=== PATIENT | female | born 1940 | race Caucasian/White ===

== ENCOUNTER → 2017-04-10 | Outpatient (CLI) | payer MEDICARE ==
[2017-04-10 10:24] LABS: Blood Urea Nitrogen 19 mg/dL (7-17); Potassium 4.4 mmol/L (3.5-5.1)
== END | disposition home or self-care (01) ==
LOC: LABWHC1 08:56
PROVIDERS: ATTEND Orthopaedic Surgery
DX: Z01.818 Encounter for other preprocedural examination (principal); Z01.812 Encounter for preprocedural laboratory examination
CPT/HCPCS: 36415; 82565; 84132; 84520; 93005

== ENCOUNTER 2017-04-16 11:23 | Inpatient (IN) | payer MEDICARE ==
[~2017-04-16 11:23] MED LIST: DEXAMETHASONE SOD PHOSPHATE 10 MG/ML 1 ML VIAL IV ONE; LACTATED RINGERS 1,000 ML IV ONE; LIDOCAINE 1% 20 ML VIAL (10MG/ML) FOR IV START INTRADERMA PRN; ONDANSETRON 4 MG/2 ML VIAL IVP ONE; ceFAZolin IN SWFI 2 GM/20 ML SYRINGE IVP ONE
[2017-04-16] MEDS ORDERED: LIDOCAINE 1% 20 ML VIAL (10MG/ML) FOR IV START INTRADERMA ONE (12:20)
[2017-04-16] MEDS ORDERED: MIDAZOLAM 2 MG/2 ML VIAL IVP ONE (12:30)
[2017-04-16 12:40] LABS: Glucose,Whole Blood 86 mg/dL (75-99)
[2017-04-16] MEDS ORDERED: SUCCINYLCHOLINE CHLORIDE 100 MG/5 ML SYR IV ONE (13:16)
[2017-04-16] MEDS ORDERED: HYDROmorphone (PF) 1 MG/ML ONE (13:16)
[2017-04-16] MEDS ORDERED: ceFAZolin 3,000 MG in SODIUM CHLORIDE 0.9% IRRIGATIO 3,000 ML IRRIGATION ONE (13:16)
[2017-04-16] MEDS ORDERED: fentaNYL (PF) 50 MCG/ML 2 ML AMP ONE (13:16)
[2017-04-16] MEDS ORDERED: PROPOFOL 10 MG/ML 20 ML VIAL IV ONE (13:16)
[2017-04-16] MEDS ORDERED: LIDOCAINE 2%-EPI 1:100,000 20 ML VIAL ONE (13:16)
[2017-04-16] MEDS ORDERED: LIDOCAINE 1% INJ 10MG/ML (20 ML MDV) ONE (13:16)
[2017-04-16] MEDS ORDERED: MIDAZOLAM 2 MG/2 ML VIAL ONE (13:16)
[2017-04-16] MEDS ORDERED: ROPIVACAINE 5 MG/ML 30 ML VIAL ONE (13:16)
[2017-04-16] MEDS ORDERED: LACTATED RINGERS 1,000 ML IV ONE (13:58)
--- NOTE | 2017-04-16 16:07 | XR ---
Fluoroscopy INDICATION: Pain, arthrodesis FINDINGS: Fluoroscopy time: 2 minutes 11 seconds. Images obtained: 6. IMPRESSIONS: 1. Documentation of fluoroscopy.
[2017-04-16] MEDS ORDERED: SENNOSIDES-DOCUSATE SODIUM 1 EACH TAB PO PRN (16:29)
[2017-04-16] MEDS ORDERED: TEMAZEPAM 15 MG CAP PO PRN (16:29)
[2017-04-16] MEDS ORDERED: ONDANSETRON 4 MG/2 ML VIAL IVP PRN (16:29)
[2017-04-16] MEDS ORDERED: diphenhydrAMINE 25 MG CAP PO PRN (16:29)
[2017-04-16] MEDS ORDERED: HYDROmorphone 0.5 MG/0.5 ML SYRINGE IVP PRN ×2 (16:29)
[2017-04-16] MEDS ORDERED: PROCHLORPERAZINE SUPPOSITORY 25 MG SUPP RECTAL PRN (16:29)
[2017-04-16] MEDS ORDERED: METOCLOPRAMIDE 5 MG/ML 2 ML VIAL IVP PRN (16:29)
[2017-04-16 16:47] LABS: Glucose,Whole Blood 133 mg/dL (75-99)
--- NOTE | 2017-04-16 16:59 | P.OP ---
Date of Procedure: 04/16/17 Preoperative Diagnosis: 1. Failed open reduction and internal fixation left ankle fracture with fixed valgus deformity and ankle arthritis 2. Type 2 diabetes with peripheral neuropathy 3. Obesity Postoperative Diagnosis: Same Procedure(s) Performed: 1. Left tibiotalocalcaneal arthrodesis with intramedullary device 2. Left percutaneous tendo Achilles lengthening 3. Removal of deep implants, left ankle 4. Application of short leg splint by physician Implants: [employer] Nail [id number] Anesthesia: GETA Surgeon: Ryan Nixon Director Of Emergency Nursing #1: Garry Stahl Estimated Blood Loss (ml): 100 IV fluids (ml): 1,500 Pathology: none sent Condition: stable Disposition: PACU Indications for Procedure: The patient is a very pleasant 77-year-old female with multiple medical problems including diabetes with peripheral neuropathy who sustained a closed left ankle fracture in 2013. She underwent operative fixation of her ankle fracture through our office with one of my partners. Following surgery she had failure of her hardware, fracture above her plate and screws on the distal fibula, valgus collapse and development of arthritis and significant deformity throughout her ankle and foot. She was initially managed nonoperatively by myself with an Ruby brace. She continued to have pain and difficulty with ambulation and a significant deformity in her ankle and foot. She got to the point where nonsurgical treatment no longer provided relief and she requested surgery. My recommendation was to perform a TTC fusion with an intramedullary device. We discussed the potential risks and complication of surgery including but not limited to risk of anesthesia, risk of superficial infection, risk of deep infection, risk of leg wound healing, risk of superficial wound necrosis, risk of deep wound necrosis, risk of nonunion of the fusion site, risk of malunion of the fusion site, risk of failure of hardware, risk of overcorrection of the deformity, risk of under correction of the deformity, risk of chronic pain, risk of chronic swelling, risk of DVT, risk of PE, risk of generalized to satisfaction with surgery, risk of inability to regain preinjury level of function, risk of inability to ambulate following surgery, risk of need for further surgery, and possibly loss of life or limb. The patient voiced her understanding of this and provided both her verbal and written consent to go forward with surgery. Description of Procedure: The patient was identified in preoperative holding and the correct left leg was marked with my initials. I reviewed the consent form with the patient and her family. All their questions were answered. The patient was seen and evaluated by anesthesia. A popliteal and saphenous nerve block was placed. The patient was then brought back to the operating room. She was positioned on the OR table where a general anesthetic and preoperative antibiotics were administered. A tourniquet was applied to the proximal aspect of the left thigh. The right leg was secured to the OR table with foam and tape. A bone foam bump was placed under her left buttock and a ramp was placed under her left leg. Her upper extremities were padded and secured. The left leg was then prepped and draped in the standard sterile fashion. Prior to starting surgery timeout was performed identifying the correct patient, operative extremity, and procedure. The patient's leg was then elevated, exsanguinated with an Esmarch bandage, and the tourniquet was inflated to 275 mmHg. I began by performing a percutaneous triple hemisection tendo Achilles lengthening. 3 stab incisions were made starting 2 cm proximal to the posterior tuberosity of the calcaneus with 2 cm between each stab wound. The most distal and proximal stab incisions released the medial half of the Achilles tendon and the middle incision released the lateral half of the Achilles tendon. A gentle dorsiflexion force was applied to the ankle and there was an audible and palpable pop as the Achilles lengthened. The Achilles lengthening was still in continuity. Roll incision and scar was then marked out over the distal fibula. Skin incision was made with a 15 blade scalpel. Dissection was carried down carefully through subcutaneous tissue to the periosteum over the fibula. The fibula was then circumferentially exposed. A small microsagittal saw was used to make an osteotomy just proximal to the plate and screws. The fibula fragment was then exposed, released and passed off to the back table to be used as bone graft. The plate and screws were all removed with the osteotomy fragment. The ankle and subtalar joint were then exposed. All the remaining articular cartilage was removed from the tibial plafond and, talar dome, and subtalar joint. A curet was used to roughen the exposed bony surfaces. The wound was then copiously irrigated. Attention was then turned to the medial aspect of the ankle. The previously made scar was marked out and extended proximally. Incision was made with a scalpel and dissection was carried down carefully through subcutaneous tissue with tenotomy scissors. The medial malleolus was circumferentially exposed. A Rafi was used to expose the medial malleolus screw which was removed. Baby Luciana retractors were placed posteriorly to the medial malleolus and a microsagittal saw was used to make an osteotomy through the medial malleolus. The ankle joint was then exposed medially. The remaining articular cartilage from the ankle joint was removed. The ankle was copiously irrigated. At this point a 2.0 mm drill bit was used to perforate the exposed subchondral bone in the ankle and subtalar joint both medially and laterally. A mixture of crushed bone graft taken during surgery and augment was used to fill bony voids and the prepared joint surface. I then positioned the joint for fusion. I was able to completely medialize the talus under the tibia. I attempted to place the ankle in neutral dorsiflexion. I then had an educational assistant placed K wires peripherally into the ankle joint. Clinically the patient's ankle appeared to be in acceptable position. The position of the joint was then checked with fluoroscopy. On the AP view the talus appeared to be medialized and directly under the tibia. On the lateral view the talus was in slight plantarflexion. The K wires were withdrawn and increased dorsiflexion was applied to the ankle and the K wires were once again driven into the talus. There was improvement in the amount of dorsiflexion. At this point a stab incision was made on the plantar aspect of the foot just proximal to the fat pad of the calcaneus. A guidewire from the nail set was then driven up through the plantar aspect of the calcaneus, into the talus and up into the tibia. The position of the wire was checked with fluoroscopy and 2 views. An opening reamer was then used to create a path through the plantar calcaneus, talus and distal tibia. A ball-tipped guidewire was then placed. I sequentially reamed and 0.5 mm increments with a 9 mm reamer. The 10 mm reamer generated chatter. I then overreamed up to an 11 mm reamer. I elected to use a 10 mm diameter nail. A 250 mm length 10 mm diameter nail was dispensed and hooked up to the targeting arm. I verified that all the guides lined up with the nail the targeting arm. The nail was then gently tapped into place and verified its final seating with fluoroscopy. I then placed 2 interlocking screws through the targeting arm into the tibia. I then placed the calcaneal locking screw through the lateral aspect of the talus. After this screw was placed the internal compression device was used to generate compression across the fusion sites. I then proceeded to place the calcaneus and subtalar screw. At this point final fluoroscopy shots were taken including an AP and lateral view of the tibia, AP and lateral views of the ankle. The fascia over the fusion site laterally was closed with a running 0 Vicryl stitch. The deep subcu was then copiously irrigated with sterile saline. The deep subcu was reapproximated using 2-0 Vicryl. The skin was closed using 3-0 nylon Algor modification of the Donati stitch. The medial incision was closed in layers with 0 Vicryl for the deep fascia, 2-0 Vicryl for the subcu, and 3-0 nylon horizontal mattress stitches for the skin. The stab incisions and plantar foot wound were closed with 3-0 nylon horizontal mattress stitches. I verified that all instrument, sponge, and sharp counts were correct. Sterile dressing consisting of Brown [place] stretchy Steri-Strips, Betadine soaked Adaptic, 4 x 4 and web roll was applied. A well-padded bulky Hoang splint was placed. The drapes were taken down, the patient was awoken from her anesthetic, and transferred to PACU in stable condition. Garry Stahl PA-C was required is a skilled educational assistant for patient positioning, surgical exposure, preparation of the fusion site, placement of hardware, closure of surgical wounds, and application of splint. Plan: The patient is going to be admitted to the hospital as an inpatient. She is to be strictly nonweightbearing on her left leg. She will receive DVT prophylaxis with Lovenox while in-house and will be discharged home on aspirin. Internal medicine will be consulted for perioperative medical management.
[2017-04-16] MEDS: HYDROmorphone 0.5 MG/0.5 ML SYRINGE IVP PRN ×2 (17:23→17:49)
[2017-04-16 19:18] LABS: Anisocytosis Slight; Basophils % (A) 0 %; Eosinophils % (A) 0 %; HCT 38.1 % (34.0-46.0); HGB 11.9 gm/dL (11.4-16.0); Hypochromasia Slight; Lymphocytes # (A) 0.4 k/uL (1.0-4.8); Lymphocytes % (A) 5 %; MCH 31.8 pg (25.0-35.0); MCHC 31.3 g/dL (31.0-37.0); MCV 101.5 fL (80.0-100.0); Macrocytosis Slight; Mean Platelet Volume 9.8; Monocytes # (A) 0.2 k/uL (0-1.0); Monocytes % (A) 2 %; Neutrophils # (A) 8.2 k/uL (1.3-7.7); Neutrophils % (A) 92 %; Platelet Count 215 k/uL (150-450); RBC 3.76 m/uL (3.80-5.40); RDW 16.2 % (11.5-15.5); WBC 8.9 k/uL (3.8-10.6)
[2017-04-16] MEDS: PRIMIDONE 50 MG TAB PO SCH (21:20)
[2017-04-16] MEDS: ceFAZolin IN SWFI 2 GM/20 ML SYRINGE IVP SCH (21:21)
[2017-04-16 21:54] VITALS: BMI 32.8
[2017-04-16] MEDS: HYDROcodone/APAP 10-325MG 1 EACH TAB PO PRN (22:01)
[2017-04-16] MEDS ORDERED: LISINOPRIL 20 MG TAB PO STA (23:17)
[2017-04-16 23:38] LABS: Glucose,Whole Blood 189 mg/dL (75-99)
[2017-04-17] MEDS: METOPROLOL TARTRATE 25 MG TAB PO SCH ×3 (00:13→21:02)
[2017-04-17] MEDS: ceFAZolin IN SWFI 2 GM/20 ML SYRINGE IVP SCH (05:27)
--- NOTE | 2017-04-17 05:49 | CONS ---
CONSULTATION DATE OF SERVICE: 04/16/2017 REASON FOR CONSULTATION: Medical management requested by Dr. Nixon. CONSULTATION: This is a pleasant 77-year-old patient whose chronic stable medical conditions include diabetes, hyperlipidemia, rheumatoid arthritis, chronic tremors in the left arm, urinary incontinence, hypertension. The patient suffered a closed ankle fracture in 2013. She had surgical intervention. Subsequently the hardware failed with fracture above the plate. The patient had a valgus collapse and developed subsequent arthritis and significant deformity. This was initially managed nonoperatively put finally decision was made to proceed with surgery that was done today. Left foot in a support. Postoperative, no nausea or vomiting. No chest pain. Patient is currently on clear liquids. Note, denies any cardiac history. REVIEW OF SYSTEMS: CONSTITUTIONAL: None. HEENT: None. RESPIRATORY: None. CARDIOVASCULAR: None. GASTROINTESTINAL: None. GENITOURINARY: Urinary incontinence. DERMATOLOGICAL: None. HEMATOLOGIC: None. LYMPHATIC: None. PSYCHIATRY: None. NEUROLOGICAL: Tremors of the left arm. MUSCULOSKELETAL: Arthritic pain in other joints. PAST MEDICAL HISTORY: Diabetes, hyperlipidemia, rheumatoid arthritis, tremors of left arm, urinary incontinence, hypertension. PAST SURGICAL HISTORY: Cholecystectomy, tonsillectomy, ORIF of the left ankle, bilateral cataract. SOCIAL HISTORY: No smoking. Alcohol occasionally wine. Lives by herself. FAMILY HISTORY: Cancer type unknown. HOME MEDICATIONS: 1. Multivitamin 1 tab p.o. daily. 2. NovoLog 70/30, 10 units subcu b.i.d. 3. Folic acid 0.4 mg p.o. daily. 4. Vitamin D3, 1000 units p.o. daily. 5. Aspirin 325 p.o. daily. 6. Mysoline 50 mg before supper, 100 mg in the morning. 7. Ditropan XL 10 mg p.o. daily. 8. Methotrexate 20 mg p.o. Friday. 9. Enalapril 10 mg p.o. b.i.d. 10.Lipitor 20 mg p.o. daily. ALLERGIES: None. PHYSICAL EXAMINATION: On examination, temperature 97.7, pulse 77, respirations 17, blood pressure 185/75, pulse ox 97% on 2 L. GENERAL APPEARANCE: Well built, BMI 32.8, lying in bed, comfortable. EYES: Pupils equal. Conjunctivae normal. HENT: Oral cavity normal. NECK: JVD not raised. Mass not palpable. RESPIRATORY: Effort normal. Lungs are clear. CARDIOVASCULAR: First and second sounds normal. No edema. ABDOMEN: Soft, nontender. Liver and spleen not palpable. LYMPHATIC: No lymph node palpable in the neck or axillae. PSYCHIATRY: Alert and oriented x3. Mood and affect normal. NEUROLOGICAL: Pupils equal. Cranial nerves grossly intact. Power and sensation grossly intact. EXTREMITIES: Left in a supportive boot. INVESTIGATIONS: White count 8.9, hemoglobin 11.9, platelets 215. ASSESSMENT: 1. Operative repair of the left ankle, having failed a prior surgery in 2013. 2. Diabetes mellitus type 2, chronically on insulin. 3. Hyperlipidemia. 4. Chronic rheumatoid arthritis. 5. Chronic tremors of the left arm. 6. Chronic urinary stress incontinence. 7. Essential hypertension. 8. Obesity; body mass index 32.8. PLAN: Home medications are resumed. The patient is on Dilaudid for pain control, Lovenox for DVT prophylaxis. Accu-Cheks will be followed. The patient's blood pressure is currently running high. I will give 1 dose of Catapres. Make sure patient's pain is controlled. Care was discussed with the patient. The patient does follow with Dr. Moreno as an outpatient. Thank you Dr. Nixon. MMPHUL / SHYN: [id number] /
[2017-04-17 06:49] LABS: Glucose,Whole Blood 171 mg/dL (75-99)
[2017-04-17] MEDS: INSULN ASP PRT/INSULIN ASPART 100 UNIT/ML 10 ML VIAL SQ SCH ×2 (07:33→17:35)
[2017-04-17] MEDS: LISINOPRIL 20 MG TAB PO SCH (08:21)
[2017-04-17] MEDS: PRIMIDONE 50 MG TAB PO SCH ×2 (08:22→18:25)
[2017-04-17] MEDS: CHOLECALCIFEROL 1,000 UNIT TAB PO SCH (08:22)
[2017-04-17] MEDS: OXYBUTYNIN 10 MG TAB.ER.24 PO SCH (08:22)
[2017-04-17] MEDS: ATORVASTATIN 20 MG TAB PO SCH (08:23)
[2017-04-17] MEDS: FOLIC ACID 1 MG TAB PO SCH (08:23)
[2017-04-17] MEDS: POLYETHYLENE GLYCOL 3350 17 GM POWD.PACK PO SCH (08:24)
--- NOTE | 2017-04-17 09:01 | P.PN ---
Subjective Progress Note Date: 04/17/17 Principal diagnosis: S/P Tibiotalacalcaneal arthrodesis Patient is postop day 1 from left tibial talocalcaneal arthrodesis there was performed due to failed ORIF of left ankle fracture, ankle instability, diabetes mellitus, peripheral neuropathy, obesity. She has minimal pain this morning. She denies calf pain. She has no new complaints. Review of systems is negative for fever, chills, chest pain, shortness breath, nausea, vomiting, dizziness, headaches, slurred speech or other. Objective - Vital Signs Vital signs: Vital Signs Temp 99.2 F 04/17/17 07:22 Pulse 71 04/17/17 07:22 Resp 16 04/17/17 07:22 BP 148/61 04/17/17 07:22 Pulse Ox 94 L 04/17/17 07:22 Intake & Output 04/16/17 04/17/17 04/17/17 18:59 06:59 18:59 Intake Total 1801 220 240 Output Total 100 900 Balance 1701 -680 240 Weight 95 kg Intake: IV 1801 Intake, IV Titration 220 Amount Lactated Ringers 1,000 ml 220 @ 20 mls/hr IV .Q24H ONE Rx#:[id number] Oral 240 Output: Urine 900 Estimated Blood Loss 100 Other: Voiding Method Bedside Commode - Exam Inspection left lower extremity shows appropriate fitting splint intact. There is evidence of some mild bleeding at the lateral aspect of the splint and Sunil which is benign. She has adequate perfusion distally with less than 2 second capillary refill in all digits. There is no constriction at the proximal aspect of the splint and bandage. - Constitutional General appearance: Present: no acute distress - Psychiatric Psychiatric: Present: A&O x's 3, appropriate affect, intact judgment & insight - Labs CBC & Chem 7: 04/16/17 19:00 Labs: Abnormal Lab Results - Last 24 Hours (Table) 04/16/17 04/16/17 04/16/17 Range/Units 16:44 19:00 23:35 RBC 3.76 L (3.80-5.40) m/uL MCV 101.5 H (80.0-100.0) fL RDW 16.2 H (11.5-15.5) % Neutrophils # 8.2 H (1.3-7.7) k/uL Lymphocytes # 0.4 L (1.0-4.8) k/uL POC Glucose (mg/dL) 133 H 189 H (75-99) mg/dL 04/17/17 Range/Units 06:46 RBC (3.80-5.40) m/uL MCV (80.0-100.0) fL RDW (11.5-15.5) % Neutrophils # (1.3-7.7) k/uL Lymphocytes # (1.0-4.8) k/uL POC Glucose (mg/dL) 171 H (75-99) mg/dL Assessment and Plan (1) Ankle fracture, left Current Visit: Yes Status: Acute Code(s): S82.892A - OTH FRACTURE OF LEFT LOWER LEG, INIT FOR CLOS FX SNOMED Code(s): 56604790 (2) Bimalleolar ankle fracture Narrative/Plan: She will continue with routine postop orthopedic protocol including pain management, wound care, physical therapy, DVT prophylaxis and medical management. Advised to keep left lower extremity elevated as well as reinforce the splint and Sunil where there is some mild bleeding. We will continue to monitor closely and make further recommendations as appropriate. She may be a candidate for transfer to an extended care facility for rehabilitation. Current Visit: No Status: Acute Priority: Medium Code(s): S82.843A - DISPLACED BIMALLEOLAR FRACTURE OF UNSP LOWER LEG, INIT SNOMED Code(s): 910638169 Time with Patient: Less than 30
[2017-04-17] MEDS: ENOXAPARIN 40 MG/0.4 ML SYRINGE SQ SCH (09:45)
--- NOTE | 2017-04-17 10:16 | XR ---
EXAMINATION TYPE: XR chest 1V DATE OF EXAM: 04/17/2017 HISTORY: Shortness of breath. COMPARISON: 09/27/2013 TECHNIQUE: Single view of the chest is submitted. FINDINGS: Demonstrated are scattered senescent parenchymal change. There is no evidence for focal infiltrate. The heart is stable. Hilar and mediastinal structures are within normal limits. Degenerative changes are seen of the dorsal spine. IMPRESSION: 1. Chronic changes without evidence for acute pulmonary disease.
[2017-04-17 11:21] LABS: Glucose,Whole Blood 183 mg/dL (75-99)
[2017-04-17] MEDS: MULTIVITAMINS, THERA 1 EACH TAB PO SCH (12:37)
[2017-04-17] MEDS: INSULIN ASPART 100 UNIT/ML 1 ML 10 ML VIAL SQ SCH ×3 (12:37→20:39)
[2017-04-17 15:46] LABS: Glucose,Whole Blood 126 mg/dL (75-99)
[2017-04-17] MEDS: HYDROcodone/APAP 10-325MG 1 EACH TAB PO PRN ×3 (16:31→22:51)
[2017-04-17 18:52] LABS: Hemoglobin A1C 5.5 % (4.0-6.0)
[2017-04-17 19:38] LABS: Glucose,Whole Blood 126 mg/dL (75-99)
--- NOTE | 2017-04-17 19:59 | P.PN ---
Progress Note - Text Progress Note Date: 04/17/17 DATE OF SERVICE: 04/17/2017 PRESENTING COMPLAINT: Left ankle hardware failure HISTORY OF PRESENT ILLNESS: 77-year-old female who suffered a closed ankle fracture in 2013, had surgical intervention, had a subsequent hardware failure with fracture above the plate, had a valgus collapse and developed subsequent arthritis and significant deformity. Attempts made to manage nonoperatively and decision made to proceed with surgery. INTERVAL HISTORY: 04/17/2017 Sitting up in a recliner appears comfortable. No acute overnight events, afebrile, vital signs stable. Agreeable to work with physical therapy, pain is well-controlled, tolerating her diet eating about 50% of her meals, last BM prior to admission. REVIEW OF SYSTEMS: Done for constitutional ,cardiovascular, GI, pulmonary with relevant findings as above. CURRENT MEDICATIONS Vanzant, Lipitor, cholecalciferol, Benadryl, Lovenox, folic acid, Dilaudid, Vistaril, NovoLog, lisinopril, Reglan, Lopressor, multivitamin, Zofran, Ditropan XL, MiraLAX, Mysoline, Compazine, Restoril, Senokot-S. PHYSICAL EXAM VITAL SIGNS: Temperature 99.2, pulse 71, blood pressure 148/61, oxygen saturation 94% on room air GENERAL APPEARANCE: Sitting up in a recliner not in distress. HENT: Normocephalic, JVD not raised. Mass not palpable. Oral cavity normal, external appearance of ears and nose normal. EYES:Pupils equal. Conjunctiva normal. RESPIRATORY: Respiratory effort normal. Lungs clear to auscultation. CARDIOVASCULAR: First and second sounds normal. No edema. ABDOMEN: Soft. Liver and spleen not palpable. No tenderness. No mass palpable. PSYCHIATRY: Alert and oriented x3. Mood and affect normal. MUSCULOSKELETAL: Left lower extremity in a supportive boot INVESTIGATIONS: Accu-Cheks noted ASSESSMENT: -Operative repair for left ankle, having failed a prior surgery in 2013. -Diabetes mellitus type 2 chronically on insulin. -Hyperlipidemia. -Chronic rheumatoid arthritis, -Chronic tremors of the left arm. -Chronic urinary stress incontinence. -Essential hypertension. -Obesity, body mass index 32.8. PLAN: Blood pressure is better controlled today with Catapres will continue that. We' ll continue current medication and treatment plan. Discharge planning likely for rehab Center. We'll await physical therapy evaluation. Plan of care discussed with the patient at bedside will follow closely. REFRIGERATION UNIT REPAIRER statement: Patient was seen and examined by nurse practitioner Amara Melchor and all elements of the case discussed with attending Dr. Jarrett negron
[2017-04-17] MEDS: hydrOXYzine PAMOATE 25 MG CAP PO PRN (20:55)
[2017-04-17] MEDS: HYDROmorphone 0.5 MG/0.5 ML SYRINGE IVP PRN (20:56)
--- NOTE | 2017-04-17 23:37 | PN ---
PROGRESS NOTE DATE OF SERVICE: 04/17/2017 ATTENDING NOTE: This patient was seen and examined by me. I discussed the case with the nurse practitioner Ms. Melchor. Patient is status post left ankle fracture surgery. Patient's blood pressure was running high last night, but talked to the nurse this morning; repeat blood pressure actually was controlled. Did receive her blood pressure medications. Comfortable, sitting up, tolerating a diet. On examination, temperature 97.6, pulse 59, blood pressure 127/65. LUNGS: Clear. CARDIOVASCULAR: First and second sounds normal. Status post left ankle repair. Continue current medication and treatment plan. Will follow. MMODL / IJN: [id number] /
[2017-04-18] MEDS: HYDROcodone/APAP 10-325MG 1 EACH TAB PO PRN ×4 (02:14→22:17)
[2017-04-18 07:02] LABS: Glucose,Whole Blood 88 mg/dL (75-99)
[2017-04-18] MEDS: hydrOXYzine PAMOATE 25 MG CAP PO PRN ×2 (07:05→14:09)
[2017-04-18] MEDS: POLYETHYLENE GLYCOL 3350 17 GM POWD.PACK PO SCH (08:14)
[2017-04-18] MEDS: PRIMIDONE 50 MG TAB PO SCH ×2 (08:14→17:26)
[2017-04-18] MEDS: METOPROLOL TARTRATE 25 MG TAB PO SCH ×2 (08:14→22:26)
[2017-04-18] MEDS: ATORVASTATIN 20 MG TAB PO SCH (08:14)
[2017-04-18] MEDS: OXYBUTYNIN 10 MG TAB.ER.24 PO SCH (08:14)
[2017-04-18] MEDS: CHOLECALCIFEROL 1,000 UNIT TAB PO SCH (08:14)
[2017-04-18] MEDS: INSULN ASP PRT/INSULIN ASPART 100 UNIT/ML 10 ML VIAL SQ SCH ×2 (08:15→17:24)
[2017-04-18] MEDS: INSULIN ASPART 100 UNIT/ML 1 ML 10 ML VIAL SQ SCH ×4 (08:15→22:26)
[2017-04-18] MEDS: LISINOPRIL 20 MG TAB PO SCH (08:16)
[2017-04-18] MEDS: ENOXAPARIN 40 MG/0.4 ML SYRINGE SQ SCH (08:17)
[2017-04-18] MEDS: FOLIC ACID 1 MG TAB PO SCH (08:17)
--- NOTE | 2017-04-18 08:48 | P.PN ---
Subjective Progress Note Date: 04/18/17 Principal diagnosis: Status post open reduction internal fixation left ankle This is a 77-year-old female who is status post open reduction internal fixation of the left ankle. She is doing well from an orthopedic standpoint. She is awaiting rehab placement. Objective - Vital Signs Vital signs: Vital Signs Temp 98.7 F 04/18/17 01:43 Pulse 66 04/18/17 01:43 Resp 16 04/18/17 01:43 BP 131/67 04/18/17 01:43 Pulse Ox 96 04/18/17 01:43 Intake & Output 04/17/17 04/18/17 04/18/17 18:59 06:59 18:59 Intake Total 360 540 Output Total 350 Balance 360 190 Intake: IV 120 Lactated Ringers 1,000 ml 120 @ 20 mls/hr IV .Q24H ONE Rx#:[id number] Oral 240 540 Output: Urine 350 Other: Voiding Method Bedside Commode # Voids 1 - Exam This is a pleasant 77-year-old female in no acute distress. She is alert and oriented 3. Exam of the left lower extremity reveals that her splint is intact. She has full toe motion without difficulty or pain. Capillary refill is less than 2 seconds. She has normal sensation to the toes. Neurovascular status to the lower extremity is intact. - Labs CBC & Chem 7: 04/16/17 19:00 Labs: Abnormal Lab Results - Last 24 Hours (Table) 04/17/17 04/17/17 04/17/17 Range/Units 11:19 15:45 19:18 POC Glucose (mg/dL) 183 H 126 H 126 H (75-99) mg/dL Assessment and Plan (1) Ankle fracture, left Current Visit: Yes Status: Acute Code(s): S82.892A - OTH FRACTURE OF LEFT LOWER LEG, INIT FOR CLOS FX SNOMED Code(s): 70983648 (2) Bimalleolar ankle fracture Current Visit: No Status: Acute Priority: Medium Code(s): S82.843A - DISPLACED BIMALLEOLAR FRACTURE OF UNSP LOWER LEG, INIT SNOMED Code(s): 143941888 Plan: The clinical findings are discussed the patient. We are planning discharge to inpatient rehab tomorrow if cleared medically.
[2017-04-18 11:48] LABS: Glucose,Whole Blood 116 mg/dL (75-99)
[2017-04-18] MEDS: MULTIVITAMINS, THERA 1 EACH TAB PO SCH (12:40)
[2017-04-18 17:04] LABS: Glucose,Whole Blood 103 mg/dL (75-99)
--- NOTE | 2017-04-18 18:02 | PN ---
PROGRESS NOTE DATE OF SERVICE: 04/18/2017 ATTENDING NOTE: This patient was seen and examined by me. I discussed the case with the nurse practitioner Ms. Melchor. Patient is sitting up in a chair, comfortable. Pain is controlled. Tolerating a diet. No nausea or vomiting. On examination, temperature 98, pulse 68, respiration 16, blood pressure 160/72, pulse ox 94% on room air. Lungs are clear. CARDIOVASCULAR: First and second sounds normal. Patient is status post ankle surgery. Blood pressure is actually better controlled. The patient is going to the [facility] today. From my standpoint, I am going to adjust the blood pressure to reflect Zestoretic 20/12.5 one tablet p.o. b.i.d. Hopefully that should control the blood pressure better. Otherwise, patient is medically stable. MMODL / IJN: [id number] /
[2017-04-18 19:57] LABS: Glucose,Whole Blood 169 mg/dL (75-99)
[2017-04-19] MEDS: HYDROmorphone 0.5 MG/0.5 ML SYRINGE IVP PRN ×2 (00:09→12:27)
[2017-04-19] MEDS: HYDROcodone/APAP 10-325MG 1 EACH TAB PO PRN ×3 (01:25→18:57)
[2017-04-19] MEDS: hydrOXYzine PAMOATE 25 MG CAP PO PRN ×3 (01:25→18:57)
[2017-04-19 06:59] LABS: Glucose,Whole Blood 85 mg/dL (75-99)
[2017-04-19] MEDS: INSULIN ASPART 100 UNIT/ML 1 ML 10 ML VIAL SQ SCH ×4 (07:33→21:59)
[2017-04-19] MEDS: INSULN ASP PRT/INSULIN ASPART 100 UNIT/ML 10 ML VIAL SQ SCH ×2 (07:33→17:48)
[2017-04-19] MEDS: PRIMIDONE 50 MG TAB PO SCH ×2 (08:16→18:54)
[2017-04-19] MEDS: CHOLECALCIFEROL 1,000 UNIT TAB PO SCH (08:16)
[2017-04-19] MEDS: ENOXAPARIN 40 MG/0.4 ML SYRINGE SQ SCH (08:16)
[2017-04-19] MEDS: OXYBUTYNIN 10 MG TAB.ER.24 PO SCH (08:16)
[2017-04-19] MEDS: LISINOPRIL 20 MG TAB PO SCH (08:16)
[2017-04-19] MEDS: FOLIC ACID 1 MG TAB PO SCH (08:16)
[2017-04-19] MEDS: ATORVASTATIN 20 MG TAB PO SCH (08:17)
[2017-04-19] MEDS: METOPROLOL TARTRATE 25 MG TAB PO SCH ×2 (08:17→21:59)
[2017-04-19] MEDS: POLYETHYLENE GLYCOL 3350 17 GM POWD.PACK PO SCH (08:17)
[2017-04-19] MEDS: MULTIVITAMINS, THERA 1 EACH TAB PO SCH (08:17)
--- NOTE | 2017-04-19 11:26 | P.DS ---
Providers Date of admission: 04/16/17 16:25 Expected date of discharge: 04/19/17 Attending physician: Ryan Nixon Consults: 04/16/17 16:29 Consult Physician Routine Consulting Provider: Mando Farias Consult Reason/Comments: post op medical management Do you want consulting provider notified?: Yes Primary care physician: Seven Moreno - Discharge Diagnosis(es) (1) Ankle fracture, left Current Visit: Yes Status: Acute (2) Bimalleolar ankle fracture Current Visit: No Status: Acute Priority: Medium Hospital Course: This is a 77-year-old female who is admitted to [facility] on 04/16/2017 for fusion of her left ankle. She was diagnosed with valgus collapse and posterior medication arthritis following open reduction internal fixation of the ankle with vitamin D deficiency. It is recommended that she undergo left ankle tibiotalar calcaneal arthrodesis with Achilles lengthening. The procedures performed without complication or sequelae. The patient is doing fairly well postoperatively. It is recommended that she transfer to inpatient rehab postoperatively. She remains in the short leg nonweightbearing splint to the left lower extremity. Patient is discharged to inpatient rehab on 04/19/2017 in good condition. She is to remain nonweightbearing to left lower extremity with her walker. Plan - Discharge Summary Discharge Rx Participant: No New Discharge Prescriptions: New Aspirin 81 mg PO DAILY #1 chewable HYDROcodone/APAP 10-325MG [[place] 10-325] 1 each PO Q4H PRN #20 tab PRN Reason: Pain Scale 1 To 5 Insulin Aspart [NovoLOG (formulary)] 0 unit SQ ACHS vial Lisinopril-Hctz 20-12.5 mg [Zestoretic 20-12.5] 1 tab PO BID #1 tab Sennosides-Docusate Sodium [Senokot-S] 2 each PO HS PRN tab PRN Reason: Constipation Aspirin 325 mg PO BID #60 tab Continue Methotrexate Sodium [Methotrexate] 20 mg PO Q7D Primidone [Mysoline] 100 mg PO QAM Multivitamins, Thera [Multivitamin (formulary)] 1 tab PO DAILY Folic Acid 0.4 mg PO DAILY Cholecalciferol [Vitamin D3] 1,000 unit PO DAILY Primidone [Mysoline] 50 mg PO PC-SUPPER Oxybutynin Chloride [Ditropan XL] 10 mg PO DAILY Atorvastatin [Lipitor] 20 mg PO DAILY Insuln Asp Prt/Insulin Aspart [NovoLOG MIX 70-30 VIAL] 10 unit SQ BID-W/MEALS Discontinued Enalapril Maleate 10 mg PO BID Aspirin 325 mg PO QAM Discharge Medication List Methotrexate Sodium [Methotrexate] 20 mg PO Q7D 09/09/14 [History] Primidone [Mysoline] 100 mg PO QAM 09/09/14 [History] Atorvastatin [Lipitor] 20 mg PO DAILY 04/08/17 [History] Cholecalciferol [Vitamin D3] 1,000 unit PO DAILY 04/08/17 [History] Folic Acid 0.4 mg PO DAILY 04/08/17 [History] Insuln Asp Prt/Insulin Aspart [NovoLOG MIX 70-30 VIAL] 10 unit SQ BID-W/MEALS [History] Multivitamins, Thera [Multivitamin (formulary)] 1 tab PO DAILY 04/08/17 [History ] Oxybutynin Chloride [Ditropan XL] 10 mg PO DAILY 04/08/17 [History] Primidone [Mysoline] 50 mg PO PC-SUPPER 04/08/17 [History] Aspirin 81 mg PO DAILY #1 chewable 04/18/17 [Rx] HYDROcodone/APAP 10-325MG [[place] 10-325] 1 each PO Q4H PRN #20 tab 04/18/17 [Rx] Insulin Aspart [NovoLOG (formulary)] 0 unit SQ ACHS vial 04/18/17 [Rx] Lisinopril-Hctz 20-12.5 mg [Zestoretic 20-12.5] 1 tab PO BID #1 tab 04/18/17 [Rx ] Sennosides-Docusate Sodium [Senokot-S] 2 each PO HS PRN tab 04/18/17 [Rx] Aspirin 325 mg PO BID #60 tab 04/19/17 [Rx] Follow up Appointment(s)/Referral(s): Ryan Nixon MD [Medical Doctor] - 04/28/17 10:00 am Activity/Diet/Wound Care/Special Instructions: Maintain splint. Nonweightbearing left lower extremity with walker. Discharge Disposition: TRANSFER TO SNF/ECF
[2017-04-19 11:46] LABS: Glucose,Whole Blood 105 mg/dL (75-99)
[2017-04-19 17:20] LABS: Glucose,Whole Blood 104 mg/dL (75-99)
--- NOTE | 2017-04-19 18:42 | PN ---
PROGRESS NOTE DATE OF SERVICE: 04/19/2017 This 77-year-old woman who was admitted with left ankle surgery is being closely monitored. No chest pain. No palpitations. No fever. PT, OT evaluating the patient for possible ECF rehab. EXAM: Alert and oriented x3. The pulse is 56, blood pressure 165/60, respirations 16, temperature 98.2, pulse ox 94% room air. HEENT: Conjunctivae normal. NECK: No jugular venous distention. CARDIOVASCULAR: S1, S2. RESPIRATORY: Breath sounds diminished in the bases. No rhonchi, no crackles ABDOMEN: Soft, nontender. LEGS: Status post surgery. NERVOUS SYSTEM: No focal deficits. LABS: WBC 8.9, hemoglobin 11.9. Accu-Cheks 189. ASSESSMENT: 1. Status post left ankle surgery with left tibiocalcaneal arthrodesis and as well as percutaneous tendon Achillis lengthening and as well as removal of feet implants. 2. Diabetes mellitus type 2. 3. Hyperlipidemia. 4. Degenerative joint disease. 5. History rheumatoid arthritis. 6. Gait dysfunction. 7. Cholecystectomy. 8. Obesity with body mass index of 33.8. RECOMMENDATIONS AND DISCUSSION: This 77-year-old woman who presented with multiple complex medical issues, will monitor the patient closely. Continue the current management. I recommend PT, OT evaluation, possible ECF rehab. Continue monitor blood sugars. Otherwise, DVT prophylaxis. Further recommendations to follow. MMMICHAEL / RONI: [id number] /
[2017-04-19 19:49] LABS: Glucose,Whole Blood 141 mg/dL (75-99)
[2017-04-20] MEDS: HYDROcodone/APAP 10-325MG 1 EACH TAB PO PRN ×3 (03:33→18:06)
[2017-04-20 07:03] LABS: Glucose,Whole Blood 90 mg/dL (75-99)
[2017-04-20] MEDS: INSULIN ASPART 100 UNIT/ML 1 ML 10 ML VIAL SQ SCH ×4 (07:17→20:28)
[2017-04-20] MEDS: INSULN ASP PRT/INSULIN ASPART 100 UNIT/ML 10 ML VIAL SQ SCH ×2 (08:18→18:08)
[2017-04-20] MEDS: PRIMIDONE 50 MG TAB PO SCH ×2 (08:43→18:12)
[2017-04-20] MEDS: OXYBUTYNIN 10 MG TAB.ER.24 PO SCH (08:43)
[2017-04-20] MEDS: METOPROLOL TARTRATE 25 MG TAB PO SCH ×2 (08:43→20:29)
[2017-04-20] MEDS: ATORVASTATIN 20 MG TAB PO SCH (08:43)
[2017-04-20] MEDS: ENOXAPARIN 40 MG/0.4 ML SYRINGE SQ SCH (08:43)
[2017-04-20] MEDS: LISINOPRIL 20 MG TAB PO SCH (08:43)
[2017-04-20] MEDS: CHOLECALCIFEROL 1,000 UNIT TAB PO SCH (08:43)
[2017-04-20] MEDS: POLYETHYLENE GLYCOL 3350 17 GM POWD.PACK PO SCH (08:44)
[2017-04-20] MEDS: FOLIC ACID 1 MG TAB PO SCH (08:44)
[2017-04-20] MEDS: MULTIVITAMINS, THERA 1 EACH TAB PO SCH (08:44)
--- NOTE | 2017-04-20 10:51 | P.PN ---
Subjective Progress Note Date: 04/20/17 Principal diagnosis: Status post fusion left ankle. Failed ORIF left ankle. This is a 77-year-old female who is status post left ankle fusion secondary to failed open reduction internal fixation of the left ankle. She is doing well from an orthopedic standpoint. She is awaiting rehab placement. Objective - Vital Signs Vital signs: Vital Signs Temp 98.9 F 04/20/17 07:00 Pulse 66 04/20/17 07:00 Resp 14 04/20/17 07:00 BP 188/70 04/20/17 07:00 Pulse Ox 94 L 04/20/17 07:00 Intake & Output 04/19/17 04/20/17 04/20/17 18:59 06:59 18:59 Intake Total 240 240 Output Total 1000 Balance 240 -1000 240 Intake: Oral 240 240 Output: Urine 1000 Other: Voiding Method Bedside Commode # Voids 2 2 - Exam This is a pleasant 77-year-old female in no acute distress. She is alert and oriented 3. Exam of the left lower extremity reveals that her splint is intact. She has full toe motion without difficulty or pain. Capillary refill is less than 2 seconds. She has normal sensation to the toes. Neurovascular status to the lower extremity is intact. - Labs CBC & Chem 7: 04/16/17 19:00 Labs: Abnormal Lab Results - Last 24 Hours (Table) 04/19/17 04/19/17 04/19/17 Range/Units 11:32 17:13 19:37 POC Glucose (mg/dL) 105 H 104 H 141 H (75-99) mg/dL Assessment and Plan (1) Ankle fracture, left Current Visit: Yes Status: Acute Code(s): S82.892A - OTH FRACTURE OF LEFT LOWER LEG, INIT FOR CLOS FX SNOMED Code(s): 83336543 (2) Bimalleolar ankle fracture Current Visit: No Status: Acute Priority: Medium Code(s): S82.843A - DISPLACED BIMALLEOLAR FRACTURE OF UNSP LOWER LEG, INIT SNOMED Code(s): 900494307 Plan: The clinical findings are discussed the patient. We are planning discharge to inpatient rehab tomorrow if cleared medically.
[2017-04-20 11:30] LABS: Glucose,Whole Blood 117 mg/dL (75-99)
--- NOTE | 2017-04-20 12:26 | PN ---
PROGRESS NOTE DATE OF SERVICE: 04/18/17 PRESENTING COMPLAINT: Ankle surgery. INTERVAL HISTORY: Patient is status post left ankle surgery. Lying in bed. No chest pain or short of breath. Did tolerate a diet. Awaiting transfer to the [facility]. Blood pressure medications were adjusted. PHYSICAL EXAMINATION: Temperature 98, pulse 68, respiration 16, blood pressure 154/76, pulse ox 94% on room. General appearance: Sitting up in bed. Comfortable. Eyes: Pupils equal. HEENT: External appearance of nose and ears normal. Oral cavity normal. Neck: JVD not raised. Mass not palpable. Respiratory effort normal. Lungs are clear. Cardiovascular: 1st and 2nd sounds normal. No edema. ABDOMEN: Soft, nontender. Liver and spleen not palpable. Psychiatry: Awake, answering simple questions. Mood and affect normal. Left ankle in a cast. INVESTIGATIONS: Accu-Cheks noted. ASSESSMENT: 1. Left ankle status post operative repair, having failed prior surgical intervention 2013. 2. Diabetes mellitus type 2, chronically on insulin. 3. Hyperlipidemia. 4. Chronic rheumatoid arthritis. 5. Chronic tremors of the left arm for which patient is on primidone. 6. Chronic urinary stress incontinence. 7. Essential hypertension. 8. Obesity; BMI 32.8. PLAN: Care was discussed with the patient. We will adjust the patient to get lisinopril hydrochlorothiazide /.5. The patient is going to the [facility]. MAYCO / RONI: [id number] /
[2017-04-20 14:08] VITALS: RESP 16
[2017-04-20 16:35] LABS: Glucose,Whole Blood 111 mg/dL (75-99)
[2017-04-20] MEDS: LISINOPRIL-HCTZ 20-12.5 MG 1 EACH TAB PO SCH (20:29)
[2017-04-20 20:38] LABS: Glucose,Whole Blood 153 mg/dL (75-99)
[2017-04-21] MEDS: HYDROcodone/APAP 10-325MG 1 EACH TAB PO PRN ×4 (02:32→14:52)
[2017-04-21 07:47] LABS: Glucose,Whole Blood 95 mg/dL (75-99)
[2017-04-21] MEDS: INSULN ASP PRT/INSULIN ASPART 100 UNIT/ML 10 ML VIAL SQ SCH (08:06)
[2017-04-21] MEDS: OXYBUTYNIN 10 MG TAB.ER.24 PO SCH (08:07)
[2017-04-21] MEDS: INSULIN ASPART 100 UNIT/ML 1 ML 10 ML VIAL SQ SCH ×2 (08:07→13:15)
[2017-04-21] MEDS: LISINOPRIL-HCTZ 20-12.5 MG 1 EACH TAB PO SCH (08:07)
[2017-04-21] MEDS: PRIMIDONE 50 MG TAB PO SCH (08:08)
[2017-04-21] MEDS: POLYETHYLENE GLYCOL 3350 17 GM POWD.PACK PO SCH (08:08)
[2017-04-21] MEDS: FOLIC ACID 1 MG TAB PO SCH (08:08)
[2017-04-21] MEDS: ENOXAPARIN 40 MG/0.4 ML SYRINGE SQ SCH (08:08)
[2017-04-21] MEDS: METOPROLOL TARTRATE 25 MG TAB PO SCH (08:10)
[2017-04-21] MEDS: ATORVASTATIN 20 MG TAB PO SCH (08:10)
[2017-04-21] MEDS: CHOLECALCIFEROL 1,000 UNIT TAB PO SCH (08:10)
[2017-04-21 11:39] LABS: Glucose,Whole Blood 99 mg/dL (75-99)
[2017-04-21] MEDS: MULTIVITAMINS, THERA 1 EACH TAB PO SCH (13:10)
[2017-04-21 15:00] VITALS: BP 131/64; PULSE 59; TEMP 98.3
--- NOTE | 2017-04-21 16:12 | PN ---
PROGRESS NOTE DATE OF SERVICE: 04/20/2017 This 77-year-old woman was admitted with left ankle surgery is being closely monitored. No chest pain. No palpitations. No fever. ECF rehab is being planned. PHYSICAL EXAM: Alert and oriented x3. Pulse 62, blood pressure 168/72, respirations 16, temperature 98.1, pulse ox 97% room air. HEENT: Conjunctivae normal. Oral mucosa moist. NECK: No jugular venous distention. No carotid bruit. No lymph node enlargement. CARDIOVASCULAR: S1, S2. No S3, no S4. RESPIRATORY: Breath sounds diminished in the bases. No rhonchi. No crackles. ABDOMEN: Soft. LEGS: Status post surgery. NERVOUS SYSTEM: No focal deficits. LABS: Accu-Cheks 179, 111. ASSESSMENT: 1. Status post left ankle surgery with left tibiocalcaneal arthrodesis as well as percutaneous tendon Achillis lengthening as well as removal of the feet implants. 2. Diabetes mellitus type 2. 3. Hyperlipidemia. 4. History of degenerative joint disease. 5. History of rheumatoid arthritis. 6. History of gait dysfunction. 7. Cholecystectomy. RECOMMENDATIONS AND DISCUSSION: I recommend to continue current management and symptomatic treatment. Otherwise at this time I recommend incentive spirometry. Resume the home medications. Possible ECF rehab. Further recommendations to follow. MMODL / IJN: [id number] /
--- NOTE | 2017-04-21 16:18 | PN ---
PROGRESS NOTE DATE OF SERVICE: 04/21/2017. INTERVAL HISTORY: This 77-year-old woman who was admitted after left ankle surgery is improving significantly. PT, OT evaluating the patient, possible ECF rehab is being considered in [facility]. No chest pain. No palpitations. No fever. PHYSICAL EXAM: Alert and oriented x3. Pulse is 56, blood pressure 182/66, respirations 16, temperature 97.2, pulse ox 94% on room air. HEENT: Conjunctivae normal. NECK: No jugular venous distention. CARDIOVASCULAR: Breath sounds diminished in the bases. No rhonchi, no crackles. ABDOMEN: Soft, nontender. No mass palpable. LEGS: Status post surgery. NERVOUS SYSTEM: No focal deficits. LABS: Accu-Cheks 95, 99. ASSESSMENT: 1. Status post left ankle surgery with left tibiocalcaneal arthrodesis as well as percutaneous Achilles tendon lengthening as well as removal of the feet implants. 2. Diabetes mellitus type 2. 3. Hyperlipidemia. 4. History of degenerative joint disease. 5. History of rheumatoid arthritis. 6. History of gait dysfunction. RECOMMENDATIONS AND DISCUSSION: This 77-year-old woman who presented with multiple complex medical issues. At this time, I recommend to continue current management and symptomatic treatment. The patient is stable. The patient will be transferred to [facility] for continued rehab. I recommend continued monitoring in the [facility] and further recommendations to follow. MMPHUL / SHYN: [id number] /
== END 2017-04-21 15:00 | DRG 494 ==
LOC: OR 11:23 → EDSTATUS 13:00 → 3SUR 16:25
PROVIDERS: ADMIT Orthopaedic Surgery; ATTEND Orthopaedic Surgery
PROC: 0SGG07Z Fusion of Left Ankle Joint with Autologous Tissue Substitute, Open Approach (ICD-10-PCS; principal; 2017-04-16 13:00)
PROC: 0SGG04Z Fusion of Left Ankle Joint with Internal Fixation Device, Open Approach (ICD-10-PCS; principal; 2017-04-16 13:00)
PROC: 0L8T0ZZ Division of Left Ankle Tendon, Open Approach (ICD-10-PCS; principal; 2017-04-16 13:00)
DX: T84.197A Other mechanical complication of internal fixation device of bone of left lower leg, initial encounter (principal); E11.42 Type 2 diabetes mellitus with diabetic polyneuropathy; M06.9 Rheumatoid arthritis, unspecified; M19.172 Post-traumatic osteoarthritis, left ankle and foot; Y79.8 Miscellaneous orthopedic devices associated with adverse incidents, not elsewhere classified; E66.9 Obesity, unspecified; E78.5 Hyperlipidemia, unspecified; I10 Essential (primary) hypertension; M19.90 Unspecified osteoarthritis, unspecified site; R25.1 Tremor, unspecified; N39.3 Stress incontinence (female) (male); Z79.899 Other long term (current) drug therapy; Z79.4 Long term (current) use of insulin; Z83.3 Family history of diabetes mellitus; Z82.49 Family history of ischemic heart disease and other diseases of the circulatory system; E55.9 Vitamin D deficiency, unspecified; S82.845 Nondisplaced bimalleolar fracture of left lower leg
CPT/HCPCS: 71045; 82306; 83036; 85025; 93005

== ENCOUNTER 2017-10-24 10:07 | Inpatient (IN) | payer MEDICARE ==
[2017-10-24] MEDS ORDERED: SODIUM CHLORIDE 0.9% 500 ML IV STA (10:23)
--- NOTE | 2017-10-24 10:26 | ED ---
General Adult HPI - General Chief complaint: Neuro Symptoms/Deficit Stated complaint: Syncope Time Seen by Provider: 10/24/17 10:09 Source: patient, RN notes reviewed, old records reviewed Mode of arrival: ambulatory Limitations: no limitations - History of Present Illness Initial comments: 77-year-old female presents for evaluation of numbness and tingling in her right upper extremity. Patient's symptoms began at 8 AM this morning. She presents to the emergency department at 1020. Her symptoms are resolved at the time of my evaluation. Patient denies any focal weakness. Denies vision changes. Denies headache. Denies chest pain or shortness of breath. Patient was urged by her brother who is a physician to present for evaluation. She has history of diabetes and hypercholesterolemia. No history of hypertension, or arrhythmia. No history of CAD known. - Related Data Home Medications Medication Instructions Recorded Confirmed Methotrexate Sodium [Methotrexate] 20 mg PO WE 09/09/14 10/24/17 Atorvastatin [Lipitor] 20 mg PO HS 04/08/17 10/24/17 Oxybutynin Chloride [Ditropan XL] 10 mg PO DAILY 04/08/17 10/24/17 Primidone [Mysoline] 50 mg PO TID 04/08/17 10/24/17 Insulin NPH Hum/Reg Insulin Hm 10 units SQ BID 10/24/17 10/24/17 [humuLIN 70/30 Kwikpen] Lisinopril-Hctz 20-12.5 mg 1 tab PO DAILY 10/24/17 10/24/17 [Zestoretic 20-12.5] Previous Rx's Medication Instructions Recorded Aspirin 325 mg PO BID #60 tab 04/19/17 Allergies Allergy/AdvReac Type Severity Reaction Status Date / Time No Known Allergies Allergy Verified 10/24/17 10:55 Review of Systems ROS Statement: Those systems with pertinent positive or pertinent negative responses have been documented in the HPI. ROS Other: All systems not noted in ROS Statement are negative. Past Medical History Past Medical History: Diabetes Mellitus, Eye Disorder, Hyperlipidemia, Memory Impairment, Neurologic Disorder, Rheumatoid Arthritis (RA) Additional Past Medical History / Comment(s): tremors left hand,, uses cane- brace on left ankle, irregular bowel movements, cataracts removed, wears reading glasses History of Any Multi-Drug Resistant Organisms: None Reported Past Surgical History: Cholecystectomy, Orthopedic Surgery, Tonsillectomy Additional Past Surgical History / Comment(s): ORIF left ankle(plate/7 screws), jaxson cataract Past Anesthesia/Blood Transfusion Reactions: No Reported Reaction Past Psychological History: No Psychological Hx Reported Smoking Status: Never smoker Past Alcohol Use History: Occasional Past Drug Use History: None Reported - Past Family History Mother Family Medical History: Myocardial Infarction (VT) Brother(s) Family Medical History: Cancer General Exam Limitations: no limitations General appearance: alert, in no apparent distress Head exam: Present: atraumatic, normocephalic Eye exam: Present: normal appearance, PERRL, other (Mild left eye ptosis) ENT exam: Present: normal exam Neck exam: Present: normal inspection. Absent: tenderness, meningismus Respiratory exam: Present: normal lung sounds bilaterally. Absent: respiratory distress, wheezes Cardiovascular Exam: Present: regular rate, irregular rhythm GI/Abdominal exam: Present: soft. Absent: distended, tenderness, guarding Extremities exam: Present: normal inspection, normal capillary refill. Absent: pedal edema Neurological exam: Present: alert, oriented X3, CN II-XII intact, other (NIH 0) . Absent: motor sensory deficit Psychiatric exam: Present: normal affect, normal mood Skin exam: Present: warm, dry, intact. Absent: cyanosis, diaphoretic Course Vital Signs 10/24/17 10/24/17 10:12 12:15 Temperature 97.1 F L Pulse Rate 68 67 Respiratory 18 18 Rate Blood Pressure 180/77 185/73 O2 Sat by Pulse 97 99 Oximetry EKG Findings - EKG Comments: EKG Findings:: EKG: Atrial fibrillation, right bundle branch block, rate of 68, QRS duration 144, QTC 472, patient has history of previous right bundle, no history of atrial fibrillation Medical Decision Making - Medical Decision Making 77 yo female presenting with right upper extremity numbness and tingling. Symptoms resolved at the time of my evaluation. Findings consistent with TIA. Head CT shows atrophy and chronic white matter ischemia, no acute hemorrhage. Chest x-ray unremarkable. CBC and CMP are within normal limits. EKG shows atrial fibrillation which is a new diagnosis in this patient. She will be admitted for both TIA and new onset atrial fibrillation. Cardiology and neurology will be placed on consult. - Lab Data Result diagrams: 10/24/17 10:23 10/24/17 10:23 Lab Results 10/24/17 10/24/17 10/24/17 Range/Units 10:23 10:23 10:23 WBC 3.9 (3.8-10.6) k/uL RBC 3.74 L (3.80-5.40) m/uL Hgb 11.7 (11.4-16.0) gm/dL Hct 36.5 (34.0-46.0) % MCV 97.8 (80.0-100.0) fL MCH 31.3 (25.0-35.0) pg MCHC 32.0 (31.0-37.0) g/dL RDW 16.2 H (11.5-15.5) % Plt Count 245 (150-450) k/uL Neutrophils % 67 % Lymphocytes % 21 % Monocytes % 5 % Eosinophils % 6 % Basophils % 0 % Neutrophils # 2.6 (1.3-7.7) k/uL Lymphocytes # 0.8 L (1.0-4.8) k/uL Monocytes # 0.2 (0-1.0) k/uL Eosinophils # 0.2 (0-0.7) k/uL Basophils # 0.0 (0-0.2) k/uL Anisocytosis Slight Macrocytosis Slight PT (9.0-12.0) sec INR (<1.2) APTT (22.0-30.0) sec Sodium 140 (137-145) mmol/L Potassium 4.7 (3.5-5.1) mmol/L Chloride 107 (98-107) mmol/L Carbon Dioxide 25 (22-30) mmol/L Anion Gap 8 mmol/L BUN 19 H (7-17) mg/dL Creatinine 0.50 L (0.52-1.04) mg/dL Est GFR (CKD-EPI)AfAm >90 (>60 ml/min/1.73 sqM) Est GFR (CKD-EPI)NonAf >90 (>60 ml/min/1.73 sqM) Glucose 99 (74-99) mg/dL Calcium 9.4 (8.4-10.2) mg/dL Magnesium 1.9 (1.6-2.3) mg/dL Total Bilirubin 0.4 (0.2-1.3) mg/dL AST 24 (14-36) U/L ALT 21 (9-52) U/L Alkaline Phosphatase 90 (38-126) U/L Total Creatine Kinase 32 (30-135) U/L CK-MB (CK-2) 0.4 (0.0-2.4) ng/mL CK-MB (CK-2) Rel Index 1.3 Troponin I <0.012 (0.000-0.034) ng/mL Total Protein 6.7 (6.3-8.2) g/dL Albumin 3.7 (3.5-5.0) g/dL Urine Color Urine Appearance (Clear) Urine pH (5.0-8.0) Ur Specific [place] (1.001-1.035) Urine Protein (Negative) Urine Glucose (UA) (Negative) Urine Ketones (Negative) Urine Blood (Negative) Urine Nitrite (Negative) Urine Bilirubin (Negative) Urine Urobilinogen (<2.0) mg/dL Ur Leukocyte Esterase (Negative) 10/24/17 10/24/17 Range/Units 10:23 10:23 WBC (3.8-10.6) k/uL RBC (3.80-5.40) m/uL Hgb (11.4-16.0) gm/dL Hct (34.0-46.0) % MCV (80.0-100.0) fL MCH (25.0-35.0) pg MCHC (31.0-37.0) g/dL RDW (11.5-15.5) % Plt Count (150-450) k/uL Neutrophils % % Lymphocytes % % Monocytes % % Eosinophils % % Basophils % % Neutrophils # (1.3-7.7) k/uL Lymphocytes # (1.0-4.8) k/uL Monocytes # (0-1.0) k/uL Eosinophils # (0-0.7) k/uL Basophils # (0-0.2) k/uL Anisocytosis Macrocytosis PT 10.1 (9.0-12.0) sec INR 1.0 (<1.2) APTT 29.2 (22.0-30.0) sec Sodium (137-145) mmol/L Potassium (3.5-5.1) mmol/L Chloride (98-107) mmol/L Carbon Dioxide (22-30) mmol/L Anion Gap mmol/L BUN (7-17) mg/dL Creatinine (0.52-1.04) mg/dL Est GFR (CKD-EPI)AfAm (>60 ml/min/1.73 sqM) Est GFR (CKD-EPI)NonAf (>60 ml/min/1.73 sqM) Glucose (74-99) mg/dL Calcium (8.4-10.2) mg/dL Magnesium (1.6-2.3) mg/dL Total Bilirubin (0.2-1.3) mg/dL AST (14-36) U/L ALT (9-52) U/L Alkaline Phosphatase (38-126) U/L Total Creatine Kinase (30-135) U/L CK-MB (CK-2) (0.0-2.4) ng/mL CK-MB (CK-2) Rel Index Troponin I (0.000-0.034) ng/mL Total Protein (6.3-8.2) g/dL Albumin (3.5-5.0) g/dL Urine Color Light Yellow Urine Appearance Clear (Clear) Urine pH 7.5 (5.0-8.0) Ur Specific [place] 1.004 (1.001-1.035) Urine Protein Negative (Negative) Urine Glucose (UA) Negative (Negative) Urine Ketones Negative (Negative) Urine Blood Negative (Negative) Urine Nitrite Negative (Negative) Urine Bilirubin Negative (Negative) Urine Urobilinogen <2.0 (<2.0) mg/dL Ur Leukocyte Esterase Negative (Negative) Critical Care Time Critical Care Time: Yes Total Critical Care Time: 35 Disposition Clinical Impression: Transient cerebral ischemia, New onset a-fib Disposition: ADMITTED IP TO THIS [facility] Condition: Stable Is patient prescribed a controlled substance at d/c from ED?: No Referrals: Seven Moreno MD [Primary Care Provider] - 1-2 days Decision to Admit Reason: Admit from EC Decision Date: 10/24/17 Decision Time: 12:40
[2017-10-24 10:49] LABS: Anisocytosis Slight; Basophils % (A) 0 %; Eosinophils # (A) 0.2 k/uL (0-0.7); Eosinophils % (A) 6 %; HCT 36.5 % (34.0-46.0); HGB 11.7 gm/dL (11.4-16.0); Lymphocytes # (A) 0.8 k/uL (1.0-4.8); Lymphocytes % (A) 21 %; MCH 31.3 pg (25.0-35.0); MCV 97.8 fL (80.0-100.0); Macrocytosis Slight; Mean Platelet Volume 8.3; Monocytes # (A) 0.2 k/uL (0-1.0); Monocytes % (A) 5 %; Neutrophils # (A) 2.6 k/uL (1.3-7.7); Neutrophils % (A) 67 %; Platelet Count 245 k/uL (150-450); RBC 3.74 m/uL (3.80-5.40); RDW 16.2 % (11.5-15.5); WBC 3.9 k/uL (3.8-10.6)
[2017-10-24 10:58] LABS: Appearance,Urine Clear (Clear); Bilirubin,Urine Negative (Negative); Blood,Urine Negative (Negative); Color,Urine Light Yellow; Glucose,Urine (UA) Negative (Negative); Ketones,Urine Negative (Negative); Leukocyte Esterase,Urine Negative (Negative); Nitrite,Urine Negative (Negative); PH, Urine 7.5 (5.0-8.0); Protein,Urine Negative (Negative); Specific Gravity,Urine 1.004 (1.001-1.035); Urobilinogen,Urine <2.0 mg/dL (<2.0)
[2017-10-24 11:04] LABS: Partial Thromboplastin Time 29.2 sec (22.0-30.0); Prothrombin Time 10.1 sec (9.0-12.0)
[2017-10-24 11:05] LABS: ALT 21 U/L (9-52); AST 24 U/L (14-36); Albumin 3.7 g/dL (3.5-5.0); Alkaline Phosphatase 90 U/L (38-126); Anion Gap 8 mmol/L; Blood Urea Nitrogen 19 mg/dL (7-17); Calcium 9.4 mg/dL (8.4-10.2); Carbon Dioxide 25 mmol/L (22-30); Chloride 107 mmol/L (98-107); Glucose 99 mg/dL (74-99); Magnesium 1.9 mg/dL (1.6-2.3); Potassium 4.7 mmol/L (3.5-5.1); Sodium 140 mmol/L (137-145); Total Bilirubin 0.4 mg/dL (0.2-1.3); Total Protein 6.7 g/dL (6.3-8.2)
[2017-10-24 11:18] LABS: Creatine Kinase 32 U/L (30-135)
--- NOTE | 2017-10-24 11:18 | CT ---
EXAMINATION TYPE: CT brain wo con DATE OF EXAM: 10/24/2017 COMPARISON: 07/01/2014 INDICATION: Neuro deficits, weakness DLP: 959.9 mGycm, Automated exposure control for dose reduction was used. CONTRAST: None CT of the brain is performed utilizing 3 mm thick sections through the posterior fossa and 3 mm thick sections through the remaining calvarium. Study is performed within 24 hours of arrival to the hosp [facility]. No abnormal hyperdensity is present to suggest an acute intracranial hemorrhage. No mass lesion is evident. No acute infarcts are evident. Mild periventricular white matter ischemic type changes are present. Ventricles and sulci are mildly prominent for the patient age. Paranasal sinuses and mastoid air cells within the [id number] are clear. IMPRESSIONS: 1. Atrophy with mild periventricular white matter ischemic changes. 2. Mild progression is evident from July 2014 comparison
[2017-10-24 11:30] LABS: Creatine Kinase MB 0.4 ng/mL (0.0-2.4); Troponin I <0.012 ng/mL (0.000-0.034)
--- NOTE | 2017-10-24 11:30 | XR ---
EXAMINATION TYPE: XR chest 2V DATE OF EXAM: 10/24/2017 COMPARISON: 04/17/2017 HISTORY: Right arm numbness. Altered mental status. TECHNIQUE: Frontal and lateral views of the chest are obtained. FINDINGS: There is no focal air space opacity, pleural effusion, or pneumothorax seen. The cardiac silhouette size is upper limits of normal in size. The osseous structures are intact. Mild multilev el degenerative changes of thoracic spine are noted. Cholecystectomy clips are noted within the right upper quadrant. There is mild generalized osseous demineralization. IMPRESSION: No acute cardiopulmonary process.
[2017-10-24] MEDS ORDERED: ASPIRIN 325 MG TAB PO STA (11:45)
[2017-10-24] MEDS ORDERED: HEPARIN SODIUM,PORCINE 5,000 UNIT/ML 1 ML VIAL IV PRN (12:10)
[2017-10-24] MEDS ORDERED: HEPARIN SOD,PORK IN 0.45% NACL 25,000 UNIT in 0.45% NACL 1 500ML.BAG IV SCH (12:15)
[2017-10-24] MEDS ORDERED: amLODIPine 5 MG TAB PO STA (12:34)
[2017-10-24] MEDS ORDERED: SODIUM CHLORIDE 0.9% 1,000 ML IV SCH (12:45)
[2017-10-24 13:34] LABS: Glucose,Whole Blood 91 mg/dL (75-99)
--- NOTE | 2017-10-24 14:13 | CONS ---
CONSULTATION Mrs. Mcclellan is a 77-year-old female with known history of diabetes and hypertension and hyperlipidemia, who presented to the emergency room with right arm numbness and tingling. By the time of her presentation, her symptoms had resolved. She did not have any associated symptoms. She is doing well otherwise. She denies any chest pain. Her breathing is stable. She denies any dizziness or palpitation. No syncope. No PND, orthopnea, or peripheral edema. She has no prior cardiac history or recent cardiac workup. Her coronary risk factors are remarkable for hypertension, hyperlipidemia and diabetes. She is a nonsmoker. MEDICATION: Include aspirin, Lipitor 20 mg daily, lisinopril HCT 20-12.5 tab daily, Mysoline, methotrexate, and insulin. REVIEW OF SYSTEMS: RESPIRATORY SYSTEM: No recent documented history of asthma, emphysema or bronchitis. GI SYSTEM: No recent GI bleed. No peptic ulcer disease. SYSTEM: No dysuria or hematuria. NERVOUS SYSTEM: No history of stroke or seizure. PAST SURGICAL HISTORY: Surgery on the ankle following a fracture. PHYSICAL EXAMINATION: A 77-year-old female, alert, oriented, in no apparent distress. Blood pressure 176/60 with a heart in the 60s. HEAD: Normocephalic. EYES: Sclerae nonicteric. NECK: Good upstroke, no bruit or jugular venous distention. LUNGS: Clear to auscultation. HEART: Regular rate and rhythm. S1, S2. No S3 with systolic ejection murmur at the base, early peaking, no diastolic murmur. ABDOMEN: Soft, nontender. Positive bowel sounds, no organomegaly. EXTREMITIES: Trace to 1+ edema with a brace on the left ankle. LAB DATA: Revealed a troponin of less than 0.012. BUN and creatinine 19 and 0.5, hemoglobin of 11.7, white blood cell of 3.9. CT scan of the head revealed no evidence of acute bleeding. EKG revealed a sinus mechanism, first-degree AV block, right bundle branch block with PACs. No change compared with an EKG done in March of 2017. IMPRESSION: 1. Right arm tingling and numbness of unclear etiology, rule out transient ischemic attack. 2. Hypertension. 3. Hyperlipidemia. 4. Diabetes mellitus. RECOMMENDATION: From the cardiac standpoint, I will obtain echocardiogram with Doppler. Follow her blood pressure and depending on that, further recommendation will be made. I do not see evidence to suggest atrial fibrillation so far on the testing available to me. Thank you for this consult. Will follow with you. MMODL / IJN: [id number] /
[2017-10-24] MEDS: LISINOPRIL-HCTZ 20-12.5 MG 1 EACH TAB PO SCH (14:17)
--- NOTE | 2017-10-24 14:19 | US ---
EXAMINATION TYPE: US carotid duplex BILAT DATE OF EXAM: 10/24/2017 COMPARISON: NONE CLINICAL HISTORY: Stenosis. Dizziness EXAM MEASUREMENTS: RIGHT: Peak Systolic Velocity (PSV) cm/sec ----- Right CCA: 88.1 ----- Right ICA: 168.7 ----- Right ECA: 100.4 ICA/CCA ratio: 1.9 RIGHT: End Diastole cm/sec ----- Right CCA: 14.0 ----- Right ICA: 34.7 ----- Right ECA: 0.0 LEFT: Peak Systolic Velocity (PSV) cm/sec ----- Left CCA: 71.1 ----- Left ICA: 165.3 ----- Left ECA: 93.1 ICA/CCA ratio: 2.3 LEFT: End Diastole cm/sec ----- Left CCA: 13.9 ----- Left ICA: 41.2 ----- Left ECA: 5.0 VERTEBRALS (direction of flow): Right Vertebral: Antegrade Left Vertebral: Antegrade Rhythm: Arrhythmia Moderate/severe amount of plaque visualized bilateral bulbs. Elevated velocities visualized within th e right distal ICA, left proximal, mid, and distal ICA. IMPRESSION: Atheromatous plaquing with elevated velocities compatible with moderate stenosis between 50 and 69% bilateral internal carotid arteries. Criteria for Assigning % of Stenosis / Diameter reduction (Estimation based on the indirect measurements of the internal carotid artery velocities (ICA PSV). 1. Normal (no stenosis)=ICA PSV < 125 cm/s: ratio < 2.0: ICA EDV<40 cm/s. 2. Less than 50% stenosis=ICA PSV < 125 cm/s: ratio < 2.0: ICA EDV<40 cm/s. 3. 50 to 69% stenosis=ICA PSV of 125 to 230 cm/s: ration 2.0 ? 4.0: ICA EDV 40-100 cm/s. 4. Greater than 70% stenosis to near occlusion= ICA PSV > 230 cm/s: ratio > 4.0: ICA EDV > 100 cm/s. 5. Near occlusion= ICA PSV velocities may be low or undetectable: variable ratio and ICA EDV. 6. Total occlusion=unable to detect flow.
[2017-10-24] MEDS ORDERED: TEMAZEPAM 15 MG CAP PO PRN (16:06)
[2017-10-24] MEDS ORDERED: ALPRAZolam 0.25 MG TAB PO PRN (16:06)
[2017-10-24] MEDS ORDERED: ACETAMINOPHEN TAB 500 MG TAB PO PRN (16:06)
[2017-10-24 17:11] LABS: Glucose,Whole Blood 138 mg/dL (75-99)
[2017-10-24] MEDS: PRIMIDONE 50 MG TAB PO SCH ×2 (19:07→20:33)
[2017-10-24] MEDS ORDERED: INSULIN NPH/REG INSULIN 70/30 300 UNIT/3 ML VIAL SQ ONE (19:13)
[2017-10-24] MEDS ORDERED: hydrALAZINE HCL 20 MG/ML 1 ML VIAL IVP PRN (20:17)
[2017-10-24] MEDS: HEPARIN SODIUM,PORCINE 5,000 UNIT/ML 1 ML VIAL SQ SCH (20:33)
--- NOTE | 2017-10-24 20:34 | HP ---
HISTORY AND PHYSICAL DATE OF SERVICE: 10/24/2017 CHIEF COMPLAINTS: Numbness and tingling of the right upper extremity. HISTORY OF PRESENT ILLNESS: This 77-year-old woman with a past medical history of multiple medical problems including diabetes, hypertension, hyperlipidemia, history of rheumatoid arthritis, history of tremors, back surgery being followed by Dr. Moreno in the outpatient setting was noted to have tingling and coldness of the right upper extremity starting at 8 o'clock which lasted a few hours, which is radiating downwards and the patient came to [facility] and admitted for further evaluation and treatment. There is no history of fever, rigors. No history of headache, loss of consciousness, seizures. A CT scan of the brain which is done in the ER showed atrophy and periventricular white matter ischemic changes. Mild progression from the previous CT scan. Otherwise, the carotid Doppler was done which showed moderate stenosis between 50 to 60% bilateral internal carotid arteries and the patient admitted for further evaluation and treatment. There is no history of fever, rigors. No history of headache, loss of consciousness or seizures. The patient also had PVCs on admission but a prolonged DE interval sinus rhythm was noted later. PAST MEDICAL HISTORY: Diabetes type 2, hypertension, hyperlipidemia, history of rheumatoid arthritis, tremors, back surgery, DJD. MEDICATIONS: Prior to admission include: 1. Insulin NPH 70/30 10 units subcu b.i.d. 2. Methotrexate 20 mg p.o. Friday. 3. Mysoline 50 mg p.o. t.i.d. 4. Lisinopril hydrochlorothiazide 20/12.5 mg p.o. daily. 5. Ditropan XL 10 mg p.o. daily. 6. Lipitor 20 mg q.p.m. 7. Aspirin 320 mg p.o. b.i.d. ALLERGIES: None. FAMILY HISTORY: History of cancer in the family. SOCIAL HISTORY: No history of smoking. Occasional alcohol intake. REVIEW OF SYSTEMS: ENT as mentioned earlier. Cardiovascular: No angina or palpitations. Respirations: No cough. GI: No nausea or vomiting. : No dysuria. Central nervous system: As mentioned earlier. Allergy/Immunology: No asthma or hayfever. Musculoskeletal as mentioned earlier. Hematology/Oncology: No history of anemia. Endocrine: Diabetes. CONSTITUTIONAL: As mentioned. Dermatology: Negative. Rheumatology: Negative. Psychiatry: As mentioned earlier. PHYSICAL EXAMINATION: Alert and oriented x2. Pulse is 64. Blood pressure 194/82, respiration 14, temperature 97.1, pulse ox 100% on room air. HEENT: Conjunctivae normal. Oral mucosa moist. Neck is no jugular venous distention. No carotid bruit. No lymph node enlargement. Cardiovascular S1-S2 muffled. Respirations: Breath sounds diminished in the bases. No rhonchi and no crackles. ABDOMEN: Soft, nontender. No mass palpable. Legs: No edema and no swelling. NERVOUS SYSTEM: Higher functions as mentioned earlier. Cranial nerves 2nd thru 12 grossly intact. No nystagmus. No diplopia. Otherwise, moves all four extremities. No sensory dysfunction. Power is normal. SKIN: No ulcer, rash or bleeding. LYMPHATICS: No lymph nodes palpable in the neck, axillae or groin. JOINTS: No active deforming arthropathy. LAB STUDIES: WBC 3.8, hemoglobin 11.7, creatinine 0.5. ASSESSMENT: 1. Tingling and numbness of the right arm, possible transient ischemic attack involving the left hemisphere. 2. Hypertension. 3. First degree AV block with PACs. 4. Bilateral carotid stenosis. 5. Diabetes type 2. 6. Hyperlipidemia. 7. History of memory impairment. 8. History of rheumatoid arthritis. 9. History of tremors. 10.History of back surgery. 11.Degenerative joint disease. RECOMMENDATIONS AND DISCUSSION: In this 77-year-old woman who presented with multiple medical issues at this time I recommend to continue current medications, management and symptomatic treatment of the patient. Antiplatelet agents have been initiated and we will consult Cardiology and as well as Neurology also. Continue the recommendations. We will also get a vascular consultation also. Otherwise, monitor blood sugars closely and closely follow with multiple consultants and I would also recommend a PT/OT evaluation as well and further recommendations to follow. A copy of dictation being forwarded to Dr. Moreno who is the primary care physician. MMMICHAEL / IJN: [id number] /
[2017-10-24 20:55] LABS: Glucose,Whole Blood 157 mg/dL (75-99)
[2017-10-24] MEDS ORDERED: INSULIN NPH/REG INSULIN 70/30 300 UNIT/3 ML VIAL SQ SCH (21:00)
[2017-10-24] MEDS ORDERED: ATORVASTATIN 20 MG TAB PO SCH (21:00)
--- NOTE | 2017-10-25 00:22 | P.CNNES ---
History of Present Illness Consult date: 10/24/17 Requesting physician: Bert Saunders Reason for Consult: TIA Chief complaint: numbness and tingling right upper extremity History of Present Illness: neurology is consulting on a 77-year-old female with a past medical history of diabetes, hypertension, hyperlipidemia, rheumatoid arthritis tremor, back surgery. Patient noted tingling and coldness in the right upper extremity starting at approximately 0800 hrs. on 10/24/17. Sensation lasted several hours. This began radiating downwards the patient came to [facility] and admitted for further evaluation and treatment. No history of fever, rigors, other neurological status changes or seizure activity. CT scan of the brain noted atrophy and periventricular white matter ischemic changes. Carotid Doppler showed stenosis at 50-69% bilateral internal carotid arteries. On contact, patient was resting in bed, no acute distress, alert and oriented 3 , no visitors or family in the room. Review of Systems systems not noted on negative Past Medical History Past Medical History: Diabetes Mellitus, Eye Disorder, Hyperlipidemia, Memory Impairment, Neurologic Disorder, Rheumatoid Arthritis (RA) Additional Past Medical History / Comment(s): tremors left hand,, uses cane- brace on left ankle, irregular bowel movements, cataracts removed, wears reading glasses History of Any Multi-Drug Resistant Organisms: None Reported Past Surgical History: Back Surgery, Cholecystectomy, Orthopedic Surgery, Tonsillectomy Additional Past Surgical History / Comment(s): x2 lt ankle sx(plate/7 screws), jaxson cataracts removed-has lens implants Past Anesthesia/Blood Transfusion Reactions: No Reported Reaction Smoking Status: Never smoker - Past Family History Mother Family Medical History: Myocardial Infarction ([place]) Father Additional Family Medical History / Comment(s): age 98 from "old age" Brother(s) Family Medical History: Cancer Medications and Allergies Home Medications Medication Instructions Recorded Confirmed Type Methotrexate Sodium [Methotrexate] 20 mg PO WE 09/09/14 10/24/17 History Atorvastatin [Lipitor] 20 mg PO HS 04/08/17 10/24/17 History Oxybutynin Chloride [Ditropan XL] 10 mg PO DAILY 04/08/17 10/24/17 History Primidone [Mysoline] 50 mg PO TID 04/08/17 10/24/17 History Aspirin 325 mg PO BID #60 tab 04/19/17 10/24/17 Rx Insulin NPH Hum/Reg Insulin Hm 10 units SQ BID 10/24/17 10/24/17 History [humuLIN 70/30 Kwikpen] Lisinopril-Hctz 20-12.5 mg 1 tab PO DAILY 10/24/17 10/24/17 History [Zestoretic 20-12.5] Allergies Allergy/AdvReac Type Severity Reaction Status Date / Time No Known Allergies Allergy Verified 10/24/17 10:55 Physical Examination - Vital Signs Vital Signs: Vital Signs Temp Pulse Pulse Resp BP BP BP 10/24/17 20:00 98.6 F 61 16 144/63 10/24/17 18:52 97.1 F L 64 14 194/82 203/81 10/24/17 15:57 98.9 F 68 18 170/75 10/24/17 14:17 59 L 18 181/78 10/24/17 14:13 60 18 181/78 10/24/17 13:31 66 18 176/67 10/24/17 12:15 67 18 185/73 10/24/17 10:12 97.1 F L 68 18 180/77 Pulse Ox 10/24/17 20:00 98 10/24/17 18:52 100 10/24/17 15:57 97 10/24/17 14:17 98 10/24/17 14:13 95 10/24/17 13:31 99 10/24/17 12:15 99 10/24/17 10:12 97 Intake and Output 10/24/17 10/24/17 10/25/17 14:59 22:59 06:59 Intake Total 120 Balance 120 Intake: Oral 120 Other: Voiding Method Toilet # Voids 1 Weight 81.647 kg General appearance: Alert & oriented x3, no apparent distress. Head: Atraumatic, normocephalic, normal inspection Eyes: Well appearance, PERRLA, EOMI. Ear, nose and throat: Normal exam, mucous membranes moist Neck: Normal inspection, absent tenderness, lymphadenopathy. Respiratory: No increased work of breathing Cardiovascular: Regular rate, rhythm GI/abdominal: no guarding Extremities: full range of motion. Neurological: cranial nerves II through XII intact no lateralizing weakness no seizure activity noted on physical exam no pronator drift and no nystagmus. Left lower extremity: 4 minus/5 Right lower extremity: 4+/5 Left upper extremity: 4+/5 Right upper extremity: 4+/5 Sensation: Left lower extremity: decreased due to prior surgical intervention and hardware Right lower extremity: normal Left upper extremity: normal Right upper extremity: normal Psychological: Mood and affect appropriate for setting. Results lipid panel ordered Homocysteine level ordered - Laboratory Findings CBC and BMP: 10/24/17 10:23 10/24/17 10:23 Abnormal Lab Findings: Abnormal Labs 10/24/17 10/24/17 10/24/17 10:23 10:23 16:50 RBC 3.74 L RDW 16.2 H Lymphocytes # 0.8 L BUN 19 H Creatinine 0.50 L POC Glucose (mg/dL) 138 H 10/24/17 20:54 RBC RDW Lymphocytes # BUN Creatinine POC Glucose (mg/dL) 157 H - Diagnostic Findings Comments: CT brain chronic small vessel ischemic and white matter changes slightly progressed from previous Carotid Doppler noted 50-69% internal carotid stenosis. Assessment and Plan (1) Transient cerebral ischemia Narrative/Plan: Given the patient's symptoms, carotid Doppler results and quick resolution of symptoms it is possible that the patient did have a TIA. Patient is known to be on 325 aspirin daily and minor change/discontinue and add Plavix 75 mg daily patient does currently take Lipitor 20 mg by mouth daily at bedtime. Patient's lipid panel has been ordered. We will reassess Lipitor dosing once the results of the lipid panels received and reviewed. EEG has been ordered. Serum homocystine level has been ordered and is pending. continue neuro checks as ordered Notify neurology immediately with any neurological status changes. Current Visit: Yes Status: Acute Code(s): G45.9 - TRANSIENT CEREBRAL ISCHEMIC ATTACK, UNSPECIFIED SNOMED Code(s): 720228281 (2) Right upper extremity numbness Current Visit: Yes Status: Acute Code(s): R20.2 - PARESTHESIA OF SKIN SNOMED Code(s): 498575774 (3) Carotid stenosis Narrative/Plan: carotid Doppler noted 50-69% bilateral carotid stenosis. Recommend vascular consult for evaluation of stenosis and for further treatment options. Continue antihyperlipidemic medication and antiplatelet therapy. Current Visit: Yes Status: Acute Code(s): I65.29 - OCCLUSION AND STENOSIS OF UNSPECIFIED CAROTID ARTERY SNOMED Code(s): 33131849 Plan: STATUS: neurology will continue to follow provide updates as needed or warranted. Notify neurology with any new neurological status changes immediately. OV note to be faxed to patient's primary care provider, Dr Mcclellan. Feel free to contact our office with any questions. I have discussed the plan of care with the physician prior to implementation and he agrees with the plan as implemented.
[2017-10-25 01:08] VITALS: RESP 18
[2017-10-25 05:45] LABS: Glucose,Whole Blood 87 mg/dL (75-99)
[2017-10-25 06:58] LABS: Anisocytosis Slight; Basophils % (A) 1 %; Eosinophils # (A) 0.3 k/uL (0-0.7); Eosinophils % (A) 8 %; HCT 34.3 % (34.0-46.0); Lymphocytes % (A) 31 %; MCH 32.4 pg (25.0-35.0); MCHC 32.1 g/dL (31.0-37.0); MCV 101.1 fL (80.0-100.0); Macrocytosis Slight; Mean Platelet Volume 7.8; Monocytes # (A) 0.3 k/uL (0-1.0); Monocytes % (A) 8 %; Neutrophils # (A) 1.5 k/uL (1.3-7.7); Neutrophils % (A) 48 %; Platelet Count 229 k/uL (150-450); RBC 3.39 m/uL (3.80-5.40); RDW 17.3 % (11.5-15.5); WBC 3.1 k/uL (3.8-10.6)
[2017-10-25 07:13] LABS: Anion Gap 5 mmol/L; Blood Urea Nitrogen 19 mg/dL (7-17); Calcium 9.3 mg/dL (8.4-10.2); Carbon Dioxide 27 mmol/L (22-30); Chloride 106 mmol/L (98-107); Cholesterol 125 mg/dL (<200); Glucose 79 mg/dL (74-99); HDL Cholesterol 56 mg/dL (40-60); LDL Cholesterol,Calculated 54 mg/dL (0-99); Potassium 4.2 mmol/L (3.5-5.1); Sodium 138 mmol/L (137-145); Triglycerides 77 mg/dL (<150)
[2017-10-25] MEDS ORDERED: INSULIN NPH/REG INSULIN 70/30 300 UNIT/3 ML VIAL SQ SCH (07:30)
[2017-10-25 07:47] VITALS: TEMP 97.3
[2017-10-25] MEDS: LISINOPRIL-HCTZ 20-12.5 MG 1 EACH TAB PO SCH (07:51)
[2017-10-25] MEDS: HEPARIN SODIUM,PORCINE 5,000 UNIT/ML 1 ML VIAL SQ SCH (07:51)
[2017-10-25] MEDS: PRIMIDONE 50 MG TAB PO SCH (07:52)
[2017-10-25] MEDS ORDERED: CLOPIDOGREL 75 MG TAB PO SCH (09:00)
[2017-10-25] MEDS ORDERED: OXYBUTYNIN 10 MG TAB.ER.24 PO SCH (09:00)
--- NOTE | 2017-10-25 09:59 | P.PN ---
Subjective Progress Note Date: 10/25/17 Principal diagnosis: TIA Patient off floor for testing on rounding. Will attempt to see patient on . Objective - Vital Signs Vital signs: Vital Signs Temp 97.3 F L 10/25/17 07:46 Pulse 60 10/25/17 07:58 Resp 18 10/25/17 07:58 BP 183/78 10/25/17 07:46 Pulse Ox 100 10/25/17 07:46 Intake & Output 10/24/17 10/25/17 10/25/17 18:59 06:59 18:59 Intake Total 120 240 Balance 120 240 Weight 81.647 kg 80.6 kg Intake: Oral 120 240 Other: Voiding Method Toilet Toilet # Voids 1 4 - Labs CBC & Chem 7: 10/25/17 06:23 10/25/17 06:23 Labs: Abnormal Lab Results - Last 24 Hours (Table) 10/24/17 10/24/17 10/24/17 Range/Units 10:23 10:23 16:50 WBC (3.8-10.6) k/uL RBC 3.74 L (3.80-5.40) m/uL Hgb (11.4-16.0) gm/dL MCV (80.0-100.0) fL RDW 16.2 H (11.5-15.5) % Lymphocytes # 0.8 L (1.0-4.8) k/uL BUN 19 H (7-17) mg/dL Creatinine 0.50 L (0.52-1.04) mg/dL POC Glucose (mg/dL) 138 H (75-99) mg/dL 10/24/17 10/25/17 10/25/17 Range/Units 20:54 06:23 06:23 WBC 3.1 L (3.8-10.6) k/uL RBC 3.39 L (3.80-5.40) m/uL Hgb 11.0 L (11.4-16.0) gm/dL MCV 101.1 H (80.0-100.0) fL RDW 17.3 H (11.5-15.5) % Lymphocytes # (1.0-4.8) k/uL BUN 19 H (7-17) mg/dL Creatinine 0.50 L (0.52-1.04) mg/dL POC Glucose (mg/dL) 157 H (75-99) mg/dL Assessment and Plan (1) Transient cerebral ischemia Current Visit: Yes Status: Acute Code(s): G45.9 - TRANSIENT CEREBRAL ISCHEMIC ATTACK, UNSPECIFIED SNOMED Code(s): 651837829 (2) Right upper extremity numbness Current Visit: Yes Status: Acute Code(s): R20.2 - PARESTHESIA OF SKIN SNOMED Code(s): 492007752 (3) Carotid stenosis Current Visit: Yes Status: Acute Code(s): I65.29 - OCCLUSION AND STENOSIS OF UNSPECIFIED CAROTID ARTERY SNOMED Code(s): 33233882
--- NOTE | 2017-10-25 10:19 | P.CON ---
Consult Note - . Consult date: 10/25/17 Assessment/Plan:: Asked to see this patient for Dr. Joyce. Reason for consult: Nonspecific neurologic events with some coldness and numbness of the right arm. This 77-year-old woman had a few hours of numbness and tingling of the right upper extremity. She denies weakness of the extremity. Carotid duplex suggests 50-69% bilateral ICA stenosis. CT of the brain shows only mild progression of atrophy and paraventricular white matter changes.. Patient is currently off the floor getting an EEG. Patient will be seen by the nurse practitioner later on when she returns to the floor. Chart data would suggest that at this point the most appropriate therapy would be medical. More aggressive antiplatelet therapy has been ordered with the addition of Plavix. Since she has less than 70% carotid stenosis and her symptoms do not include focal motor symptoms I feel that this is the best option. We would be happy to follow this patient as an outpatient. I will be happy to return tomorrow to see the patient if she is still in the hospital.
[2017-10-25 11:26] LABS: Glucose,Whole Blood 95 mg/dL (75-99)
[2017-10-25] MEDS ORDERED: ASPIRIN 325 MG TAB PO SCH (12:00)
[2017-10-25] MEDS ORDERED: amLODIPine 5 MG TAB PO SCH (12:30)
--- NOTE | 2017-10-25 13:20 | PN ---
PROGRESS NOTE Mrs. Mcclellan is a 77-year-old female known history of diabetes, hypertension, hyperlipidemia, who presented with left arm numbness and tingling. She is feeling better today. She has no further symptoms. On the monitor she is in sinus mechanism with first-degree AV block. There is no evidence of tachy or bradyarrhythmia. She continues to be at this time on aspirin once a day, Lipitor 20 mg daily, Plavix 75 mg daily, lisinopril HCT 20-12.5 mg daily. PHYSICAL EXAMINATION: Blood pressure 180/70 with a heart rate in the 60s. LUNGS: Clear. HEART: Regular rate and rhythm. S1, S2. No S3 with systolic ejection murmur. ABDOMEN: Soft, nontender. EXTREMITIES: No edema. LAB DATA: BUN and creatinine 19 and 0.5. LDL of 54. IMPRESSION: 1. Right arm numbness of unclear etiology. Could be related to a transient ischemic attack. 2. Hypertension. RECOMMENDATION: I will add to her regimen amlodipine 5 mg daily. Continue the rest of medical regimen. From the cardiac standpoint, she is stable. MMODL / IJN: [id number] /
--- NOTE | 2017-10-25 13:38 | DS ---
DISCHARGE SUMMARY DATE OF SERVICE: 10/25/2017. FINAL DIAGNOSES: 1. Tingling and numbness of the right arm, possible acute transient ischemic attack involving the left hemisphere. 2. Bilateral internal carotid stenosis between 50%-69% stenosis. 3. Hypertension. 4. First-degree AV block and with PAC in the EKG. 5. Diabetes mellitus type 2. 6. Hyperlipidemia. 7. History of memory impairment. 8. History of rheumatoid arthritis. 9. History of tremors. 10.History of back surgery. 11.History of degenerative joint disease. DISCHARGE DISPOSITION: Patient will be discharged in a stable condition with guarded prognosis. HISTORY OF PRESENT ILLNESS: This is a 77-year-old woman with a past medical history of multiple medical problems being followed by Dr. Moreno in the outpatient setting, was admitted with numbness and some weakness of the right arm. Patient treated symptomatically. Patient had bilateral carotid stenosis, Vascular Surgery evaluation has been stable otherwise. Neurology saw the patient. Patient improved significantly. On exam, vitals are stable. CARDIOVASCULAR: S1, S2. ABDOMEN: Soft. NERVOUS SYSTEM: No focal discharge. Diet is cardiac diet. Activity limited until followup. MEDICATIONS: 1. Lipitor 20 mg q.h.s. 2. Insulin NPH 10 units subcu b.i.d. 3. Lisinopril hydrochlorothiazide 20/12.5 mg p.o. daily. 4. Methotrexate 20 mg at this time. 5. Ditropan XL 10 mg p.o. daily. 6. Mysoline 50 mg p.o. t.i.d. 7. Plavix 75 mg p.o. daily. Follow up with Dr. Moreno in 2-3 days, follow up with Dr. Obrien and Dr. Alvarez, Vascular Surgery as mentioned earlier. MMODL / IJN: [id number] /
[2017-10-25 14:31] VITALS: BP 159/70; PULSE 58
--- NOTE | 2017-10-25 15:48 | ECHOF ---
Referral Reason:Thrombus MEASUREMENTS -------- HEIGHT: 170.2 cm WEIGHT: 81.6 kg BP: RVIDd: 2.9 cm (< 3.3) IVSd: 1.4 cm (0.6 - 1.1) LVIDd: 4.1 cm (3.9 - 5.3) LVPWd: 1.3 cm (0.6 - 1.1) IVSs: 1.7 cm LVIDs: 2.7 cm LVPWs: 1.6 cm LA Diam: 2.8 cm (2.7 - 3.8) Ao Diam: 3.0 cm (2.0 - 3.7) AV Cusp: 2.0 cm (1.5 - 2.6) LA Diam: 3.5 cm (2.7 - 3.8) EPSS: 0.4 cm MV E Harinder: 0.37 m/s MV DecT: 331 ms MV A Harinder: 0.87 m/s MV E/A Ratio: 0.43 RAP: 5.00 mmHg RVSP: 29.80 mmHg MV EF SLOPE: 47.19 mm/s (70 - 150) MV EXCURSION: 1.35 cm (> 18.000) FINDINGS -------- Sinus rhythm. This was a technically good study. The left ventricular size is normal. There is mild concentric left ventricular hypertrophy. Overa ll left ventricular systolic function is normal with, an EF between 55 - 60 %. The right ventricle is normal in size. The left atrium is normal in size. The right atrium is normal in size and function. Aortic valve is trileaflet and is mildly thickened. The mitral valve leaflets are mildly thickened. Moderate mitral regurgitation is present. Mild tricuspid regurgitation present. There is no evidence of pulmonary hypertension. The right v entricular systolic pressure, as measured by Doppler, is 29.80mmHg. There is no pulmonic regurgitation present. The aortic root size is normal. There is no pericardial effusion. CONCLUSIONS -------- 1. Sinus rhythm. 2. This was a technically good study. 3. The left ventricular size is normal. 4. Overall left ventricular systolic function is normal with, an EF between 55 - 60 %. 5. The left atrium is normal in size. 6. Aortic valve is trileaflet and is mildly thickened. 7. The mitral valve leaflets are mildly thickened. 8. Moderate mitral regurgitation is present. 9. Mild tricuspid regurgitation present. 10. There is no evidence of pulmonary hypertension. 11. There is no pulmonic regurgitation present. 12. The aortic root size is normal. 13. There is no pericardial effusion. [employer] TRAINEE: MATT Hurst
[2017-10-29] MEDS ORDERED: METHOTREXATE SODIUM 2.5 MG TAB PO SCH (09:00)
== END 2017-10-25 13:46 | disposition home or self-care (01) | DRG 69 ==
LOC: EC 10:07 → 6SEL 12:36
PROVIDERS: ADMIT Hospitalist; ATTEND Hospitalist
DX: G45.9 Transient cerebral ischemic attack, unspecified (principal); E11.9 Type 2 diabetes mellitus without complications; E78.00 Pure hypercholesterolemia, unspecified; E78.5 Hyperlipidemia, unspecified; I10 Essential (primary) hypertension; I44.0 Atrioventricular block, first degree; I65.23 Occlusion and stenosis of bilateral carotid arteries; I67.82 Cerebral ischemia; M06.9 Rheumatoid arthritis, unspecified; M19.90 Unspecified osteoarthritis, unspecified site; R25.1 Tremor, unspecified; I49.1 Atrial premature depolarization; Z79.4 Long term (current) use of insulin; Z79.82 Long term (current) use of aspirin; Z79.899 Other long term (current) drug therapy; Z90.49 Acquired absence of other specified parts of digestive tract; Z98.42 Cataract extraction status, left eye; Z98.41 Cataract extraction status, right eye; Z96.1 Presence of intraocular lens; Z82.49 Family history of ischemic heart disease and other diseases of the circulatory system; Z80.9 Family history of malignant neoplasm, unspecified
CPT/HCPCS: 36415; 70450; 71046; 80048; 80053; 80061; 81003; 82550; 82553; 83090; 83735; 84484; 85025; 85610; 85730; 93005; 93306; 93880; 96361; 96365; 96366; 99291

== ENCOUNTER 2020-08-25 21:08 | Inpatient (IN) | payer MEDICARE ==
--- NOTE | 2020-08-25 21:32 | ED ---
General Adult HPI - General Chief complaint: Fall Stated complaint: Fall, Hip Pain Time Seen by Provider: 08/25/20 21:25 Source: patient Mode of arrival: ambulatory Limitations: physical limitation - History of Present Illness Initial comments: Dictation was produced using [employer] dictation software. please excuse any grammatical, word or spelling errors. Chief Complaint: 80-year-old female presents emergency department for right hip pain History of Present Illness: 80-year-old female she has past history of diabetes dyslipidemia. She fell on her kitchen earlier today. She felt her right side. Denies any loss of consciousness or head trauma. Patient states her only complaint is right hip pain. 7 difficulty walking secondary to pain. She is brought in by her brother who is a local primary care physician.patient does not take any anticoagulation medications. She does take Plavix howev The ROS documented in this emergency department record has been reviewed and confirmed by me. Those systems with pertinent positive or negative responses have been documented in the HPI. All other systems are other negative and/or noncontributory. PHYSICAL EXAM: General Impression: Alert and oriented x3, not in acute distress HEENT: Normocephalic atraumatic, extra-ocular movements intact, pupils equal and reactive to light bilaterally, mucous membranes moist. Cardiovascular: Heart regular rate and rhythm Chest: Able to complete full sentences, no retractions, no tachypnea Abdomen: abdomen soft, non-tender, non-distended, no organomegaly Musculoskeletal: Pulses present and equal in all extremities, no peripheral edema Lower extremities: Position of comfort and the externally rotated position. She does grimace with internal and external rotation of the right lower extremity at the hip. Motor: no focal deficits noted Neurological: CN II-XII grossly intact, no focal motor or sensory deficits noted Skin: Intact with no visualized rashes Psych: Normal affect and mood ED course: 80-year-old female presents to the emergency Department with hip pain after fall. Vital signs upon arrival are within acceptable limits. Pelvis x-ray shows subcapital fracture of the right femur. Femur x-ray shows the same. Chest x-ray is nonacute. X-ray shows impacted subcapital femur fracture. Rest imaging is negative. Preoperative labs ordered. Preoperative chest x-ray is normal. Preoperative EKG is ordered. [facility] Case discussed w Dr. Priest. - Related Data Home Medications Medication Instructions Recorded Confirmed metHOTREXate sodium [Methotrexate] 20 mg PO WE 09/09/14 08/25/20 Atorvastatin [Lipitor] 20 mg PO DAILY 04/08/17 08/25/20 Oxybutynin Chloride [Ditropan XL] 10 mg PO DAILY 04/08/17 08/25/20 Primidone [Mysoline] 50 mg PO QID 04/08/17 08/25/20 Lisinopril-Hctz 20-12.5 mg 1 tab PO DAILY 10/24/17 08/25/20 [Zestoretic 20-12.5] Aspirin EC [Ecotrin Low Dose] 81 mg PO DAILY 08/25/20 08/25/20 Cholecalciferol [Vitamin D3 (25 25 mcg PO DAILY 08/25/20 08/25/20 Mcg = 1000 Iu)] Folic Acid 0.4 mg PO DAILY 08/25/20 08/25/20 Previous Rx's Medication Instructions Recorded Clopidogrel [Plavix] 75 mg PO DAILY #30 tab 10/25/17 amLODIPine [Norvasc] 5 mg PO DAILY #90 tab 10/25/17 Allergies Allergy/AdvReac Type Severity Reaction Status Date / Time No Known Allergies Allergy Verified 08/25/20 21:35 Review of Systems ROS Statement: Those systems with pertinent positive or pertinent negative responses have been documented in the HPI. ROS Other: All systems not noted in ROS Statement are negative. Past Medical History Past Medical History: Diabetes Mellitus, Eye Disorder, Hyperlipidemia, Memory Impairment, Neurologic Disorder, Rheumatoid Arthritis (RA) Additional Past Medical History / Comment(s): tremors left hand,, uses cane- brace on left ankle, irregular bowel movements, cataracts removed, wears reading glasses History of Any Multi-Drug Resistant Organisms: None Reported Past Surgical History: Back Surgery, Cholecystectomy, Orthopedic Surgery, Tonsillectomy Additional Past Surgical History / Comment(s): x2 lt ankle sx(plate/7 screws), jaxson cataracts removed-has lens implants Past Anesthesia/Blood Transfusion Reactions: No Reported Reaction Past Psychological History: No Psychological Hx Reported Smoking Status: Never smoker Past Alcohol Use History: Occasional Past Drug Use History: None Reported - Past Family History Mother Family Medical History: Myocardial Infarction ([place]) Father Additional Family Medical History / Comment(s): age 98 from "old age" Brother(s) Family Medical History: Cancer General Exam Limitations: physical limitation Course Vital Signs 08/25/20 21:20 Temperature 98.3 F Pulse Rate 69 Respiratory 18 Rate Blood Pressure 185/76 O2 Sat by Pulse 94 L Oximetry Disposition Clinical Impression: Hip fracture Disposition: ADMITTED IP TO THIS HOSP Condition: Fair Referrals: Seven Moreno MD [Primary Care Provider] - 1-2 days
--- NOTE | 2020-08-25 22:17 | XR ---
EXAMINATION TYPE: XR chest 1V DATE OF EXAM: 08/25/2020 COMPARISON: 10/24/2017 HISTORY: Fall. Pain. TECHNIQUE: 2 views FINDINGS: There is no heart failure nor confluent pneumonic infiltrate. Costophrenic angles are clear . Thoracic aorta is atheromatous. There are no hilar masses. IMPRESSION: No active cardiopulmonary disease. Normal heart. No change.
--- NOTE | 2020-08-25 22:18 | XR ---
EXAMINATION TYPE: XR femur RT DATE OF EXAM: 08/25/2020 COMPARISON: NONE HISTORY: Fall. Hip pain. TECHNIQUE: 4 views FINDINGS: There is slightly impacted subcapital fracture right femur. There is no dislocation. There is vascular calcification. The knee joint appears anatomic. IMPRESSION: Subcapital fracture right femur.
--- NOTE | 2020-08-25 22:19 | XR ---
EXAMINATION TYPE: XR pelvis AP view DATE OF EXAM: 08/25/2020 COMPARISON: NONE HISTORY: Pain. Fall. TECHNIQUE: Single view FINDINGS: Pelvic ring is intact. There is slightly impacted subcapital fracture right femur. Fracture may not be an acute fracture. The sacroiliac joints are normal. Proximal left femur is intact. IMPRESSION: Subcapital fracture right femur which may not be acute.
[2020-08-25] MEDS ORDERED: NALOXONE 0.4 MG/ML 1 ML VIAL IV PRN (22:26)
[2020-08-25] MEDS: SODIUM CHLORIDE 0.9% 1,000 ML IV SCH (23:08)
[2020-08-25 23:11] LABS: Basophils % (A) 0 %; Eosinophils # (A) 0.1 k/uL (0-0.7); Eosinophils % (A) 1 %; HCT 36.5 % (34.0-46.0); HGB 11.8 gm/dL (11.4-16.0); Lymphocytes # (A) 0.7 k/uL (1.0-4.8); Lymphocytes % (A) 7 %; MCH 31.5 pg (25.0-35.0); MCHC 32.4 g/dL (31.0-37.0); MCV 97.4 fL (80.0-100.0); Mean Platelet Volume 9.1; Monocytes # (A) 0.2 k/uL (0-1.0); Monocytes % (A) 2 %; Neutrophils # (A) 8.6 k/uL (1.3-7.7); Neutrophils % (A) 89 %; Platelet Count 194 k/uL (150-450); RBC 3.75 m/uL (3.80-5.40); RDW 14.9 % (11.5-15.5); WBC 9.7 k/uL (3.8-10.6)
[2020-08-25] MEDS: MORPHINE SULFATE 4 MG/ML SYRINGE IV PRN (23:17)
[2020-08-25 23:21] LABS: Partial Thromboplastin Time 24.6 sec (22.0-30.0); Prothrombin Time 10.4 sec (9.0-12.0)
[2020-08-25 23:51] LABS: Potassium 4.2 mmol/L (3.5-5.1)
[2020-08-25 23:52] LABS: African American GFR (CKD) >90 (>60 ml/min/1.73 sqM); Anion Gap 6 mmol/L; Blood Urea Nitrogen 21 mg/dL (7-17); Calcium 9.4 mg/dL (8.4-10.2); Carbon Dioxide 30 mmol/L (22-30); Chloride 102 mmol/L (98-107); Glucose 187 mg/dL (74-99); Non-African American GFR(CKD) 89 (>60 ml/min/1.73 sqM); Sodium 138 mmol/L (137-145)
[2020-08-26] MEDS: MORPHINE SULFATE 4 MG/ML SYRINGE IV PRN ×2 (05:22→14:03)
[2020-08-26 07:39] LABS: Glucose,Whole Blood 175 mg/dL (75-99)
[2020-08-26] MEDS: SODIUM CHLORIDE 0.9% 1,000 ML IV SCH ×3 (08:34→22:26)
[2020-08-26] MEDS: LISINOPRIL-HCTZ 20-12.5 MG 1 EACH TAB PO SCH (08:38)
[2020-08-26] MEDS: ATORVASTATIN 20 MG TAB PO SCH (08:38)
[2020-08-26] MEDS: OXYBUTYNIN 10 MG TAB.ER.24 PO SCH (08:38)
[2020-08-26] MEDS: CHOLECALCIFEROL 25 MCG (1000 IU) TABLET PO SCH (08:39)
[2020-08-26] MEDS: FOLIC ACID 1 MG TAB PO SCH (08:39)
[2020-08-26] MEDS: amLODIPine 5 MG TAB PO SCH (08:39)
[2020-08-26] MEDS: PRIMIDONE 50 MG TAB PO SCH ×4 (08:39→20:38)
--- NOTE | 2020-08-26 10:49 | P.HPOR ---
History of Present Illness H&P Date: 08/26/20 Chief Complaint: right hip pain This is a 80-year-old female who lost her balance and fell in her kitchen yesterday, sustaining injury to her right hip. On exam and x-ray in the emergency department she is found to have a right femoral neck fracture. The patient is admitted to our service for surgical intervention and care. The patient has history of diabetes and dyslipidemia. She is currently on Plavix. Past Medical History Past Medical History: Diabetes Mellitus, Eye Disorder, Hyperlipidemia, Memory Impairment, Neurologic Disorder, Rheumatoid Arthritis (RA) Additional Past Medical History / Comment(s): tremors left hand,, uses cane on left ankle, irregular bowel movements, cataracts removed, wears reading glasses History of Any Multi-Drug Resistant Organisms: None Reported Past Surgical History: Back Surgery, Cholecystectomy, Orthopedic Surgery, Tonsillectomy Additional Past Surgical History / Comment(s): x2 lt ankle sx(plate/7 screws), jaxson cataracts removed-has lens implants Past Anesthesia/Blood Transfusion Reactions: No Reported Reaction Past Psychological History: No Psychological Hx Reported Additional Psychological History / Comment(s): pt is independant. drives, lives in [facility] that has 1 porch step. uses cane when up. no home care services recieved. Smoking Status: Never smoker Past Alcohol Use History: Occasional Past Drug Use History: None Reported - Past Family History Mother Family Medical History: Myocardial Infarction ([place]) Father Additional Family Medical History / Comment(s): age 98 from "old age" Brother(s) Family Medical History: Cancer Medications and Allergies Home Medications Medication Instructions Recorded Confirmed Type metHOTREXate sodium [Methotrexate] 20 mg PO WE 09/09/14 08/25/20 History Atorvastatin [Lipitor] 20 mg PO DAILY 04/08/17 08/25/20 History Oxybutynin Chloride [Ditropan XL] 10 mg PO DAILY 04/08/17 08/25/20 History Primidone [Mysoline] 50 mg PO QID 04/08/17 08/25/20 History Lisinopril-Hctz 20-12.5 mg 1 tab PO DAILY 10/24/17 08/25/20 History [Zestoretic 20-12.5] Clopidogrel [Plavix] 75 mg PO DAILY #30 tab 10/25/17 08/25/20 Rx amLODIPine [Norvasc] 5 mg PO DAILY #90 tab 10/25/17 08/25/20 Rx Aspirin EC [Ecotrin Low Dose] 81 mg PO DAILY 08/25/20 08/25/20 History Cholecalciferol [Vitamin D3 (25 25 mcg PO DAILY 08/25/20 08/25/20 History Mcg = 1000 Iu)] Folic Acid 0.4 mg PO DAILY 08/25/20 08/25/20 History Allergies Allergy/AdvReac Type Severity Reaction Status Date / Time No Known Allergies Allergy Verified 08/25/20 21:35 Physical Examination this is a pleasant 80-year-old female in no acute distress. She is alert and oriented 3. Exam of the head neck reveal no obvious deformity. She has full cervical spine motion without difficulty or pain. Exam of the upper extremities is unremarkable. She has full shoulder, elbow, wrist and finger motion bilaterally. Neurovascular status the upper extremities is intact. Exam of the lower extremities reveals no obvious deformity. There is some external rotation noted to the right leg. She has full foot and ankle motion bilaterally. Pain with any motion of the right hip. Results X-rays of the pelvis and right hip reveal a nondisplaced femoral neck fracture. No other fractures identified. - Labs Labs: Abnormal Lab Results - Last 24 Hours (Table) 08/25/20 08/25/20 08/26/20 Range/Units 23:04 23:04 07:29 RBC 3.75 L (3.80-5.40) m/uL Neutrophils # 8.6 H (1.3-7.7) k/uL Lymphocytes # 0.7 L (1.0-4.8) k/uL BUN 21 H (7-17) mg/dL Glucose 187 H (74-99) mg/dL POC Glucose (mg/dL) 175 H (75-99) mg/dL H & H 08/25/20 Range/Units 23:04 Hgb 11.8 (11.4-16.0) gm/dL Hct 36.5 (34.0-46.0) % Coagulation 08/25/20 Range/Units 23:04 INR 1.0 (<1.2) Result Diagrams: 08/25/20 23:04 08/25/20 23:04 Assessment and Plan (1) Subcapital fracture of right hip Current Visit: Yes Status: Acute Code(s): S72.011A - UNSP INTRACAPSULAR FRACTURE OF RIGHT FEMUR, INIT FOR CLOS FX SNOMED Code(s): 276291469 (2) Diabetes Current Visit: No Status: Acute Code(s): E11.9 - TYPE 2 DIABETES MELLITUS WITHOUT COMPLICATIONS SNOMED Code(s): 56114264 Plan: The clinical and x-ray findings are discussed with the patient. It is recommended she undergo hemiarthroplasty of the right hip. The procedures discussed in detail including the possible risks and outcomes. It is highly recommended she be transferred to inpatient rehab postoperatively. We are planning OR tomorrow if cleared medically.
[2020-08-26 11:47] LABS: Glucose,Whole Blood 157 mg/dL (75-99)
[2020-08-26 16:44] LABS: Glucose,Whole Blood 145 mg/dL (75-99)
[2020-08-26] MEDS: INSULIN ASPART (NovoLOG) 100 UNIT/ML VIAL SQ SCH ×2 (17:29→20:38)
[2020-08-26 17:53] LABS: Appearance,Urine Clear (Clear); Color,Urine Yellow; Glucose,Urine (UA) Negative (Negative); Protein,Urine Negative (Negative); Specific Gravity,Urine 1.015 (1.001-1.035)
[2020-08-26 17:54] LABS: Bilirubin,Urine Negative (Negative); Blood,Urine Large (Negative); Ketones,Urine Negative (Negative); Leukocyte Esterase,Urine Moderate (Negative); Mucus,Urine Rare /hpf; Nitrite,Urine Negative (Negative); RBC,Urine >182 /hpf (0-5); Squamous Epithelial Cell,Urine <1 /hpf (0-4); Urobilinogen,Urine <2.0 mg/dL (<2.0); WBC,Urine 19 /hpf (0-5)
[2020-08-26 20:31] LABS: Glucose,Whole Blood 170 mg/dL (75-99)
--- NOTE | 2020-08-26 23:58 | CONS ---
CONSULTATION DATE OF SERVICE: 08/26/2020. CHIEF COMPLAINT: Fall and hip pain. HISTORY OF PRESENT ILLNESS: This 80-year-old woman with a past medical history of history of diabetes type 2, hypertension, history of memory impairment, history of rheumatoid arthritis, history of back surgery, cholecystomy being followed by Dr. Moreno in the outpatient setting, apparently had a fall. The patient fell on the kitchen floor. The patient is complaining of right hip pain. The patient was taken to [facility] and x-rays showed subcapital fracture of the right femur and right hip hemiarthroplasty is planned by Dr. Priest tomorrow. The patient is a previous cardiovascular fitness appears to be excellent. There is no history of fever, rigors. No history of headache, loss of consciousness of seizures. Patient had previous surgery. The possibility of ECF rehab is also being considered at this time. PAST MEDICAL HISTORY: Diabetes, hypertension, memory impairment, history of rheumatoid arthritis. MEDICATIONS: Home medications are: Methotrexate 20 mg daily, Norvasc, Mysoline, Ditropan, Zestoretic, folic acid, Plavix, vitamin D3, Lipitor, Ecotrin, doses reviewed. ALLERGIES: None. FAMILY HISTORY: History of cancer in the family. SOCIAL HISTORY: No history of smoking. No history of alcohol. REVIEW OF SYSTEMS: ENT: No diminished vision. No diminished hearing. CARDIOVASCULAR: No angina. RESPIRATION: No cough or hemoptysis. GI: No nausea or vomiting. : No dysuria. NERVOUS SYSTEM: No numbness or weakness. ALLERGY/IMMUNOLOGY: No asthma or hayfever. MUSCULOSKELETAL: As mentioned earlier. HEMATOLOGY/ONCOLOGY: No history of anemia. ENDOCRINE: Diabetes. CONSTITUTIONAL: As mentioned earlier. DERMATOLOGY: Negative. RHEUMATOLOGY: Negative. PSYCHIATRY as mentioned earlier. PHYSICAL EXAMINATION: The patient is alert and oriented times three. Pulse 76. Blood pressure 128/56, respirations 16, temperature 99.1, pulse ox 94% on room air. HEENT: Conjunctivae normal. NECK: No JVD. CARDIOVASCULAR: S1, S2 muffled. RESPIRATION: Breath sounds diminished in the bases. A few scattered rhonchi and crackles. ABDOMEN: Soft, nontender. LEGS are no edema. No swelling. NERVOUS SYSTEM: No focal deficits. Moves all four limbs. Lymphatics: No lymph nodes palpable in the neck, axillae or groin. SKIN: No ulcer. No rashes. No bleeding. JOINTS: No active deforming arthropathy. LAB STUDIES: WBC 9.7, hemoglobin 11.8, sodium 138, potassium 4.2. ASSESSMENT: 1. Status post fall and right hip fracture. 2. Gait dysfunction. 3. Diabetes mellitus type 2. 4. Hyperlipidemia. 5. History of memory impairment. 6. History rheumatoid arthritis. 7. History of tremors of the right hand. 8. History of back surgery. 9. History of cholecystectomy. 10.NO CODE, NO CPR, NO VENT. RECOMMENDATIONS AND DISCUSSION: In this 80-year-old woman who presented with multiple complex medical issues, at this time I recommend to continue current medications, management and symptomatic treatment. Exercise tolerance appears to be excellent. The patient cleared for surgery. Resume the home medication. Monitor blood sugars closely and scale. DVT prophylaxis. Closely follow with Orthopedic surgery. discussed with family and further recommendations to follow. See orders for details. MMODL / IJN: [id number] / MTDD
[2020-08-27 07:15] LABS: Glucose,Whole Blood 109 mg/dL (75-99)
[2020-08-27] MEDS: CHOLECALCIFEROL 25 MCG (1000 IU) TABLET PO SCH (07:29)
[2020-08-27] MEDS: FOLIC ACID 1 MG TAB PO SCH (07:29)
[2020-08-27] MEDS: amLODIPine 5 MG TAB PO SCH (07:29)
[2020-08-27] MEDS: ATORVASTATIN 20 MG TAB PO SCH (07:29)
[2020-08-27] MEDS: INSULIN ASPART (NovoLOG) 100 UNIT/ML VIAL SQ SCH ×4 (07:29→20:40)
[2020-08-27] MEDS: PRIMIDONE 50 MG TAB PO SCH ×4 (07:30→20:40)
[2020-08-27] MEDS: LISINOPRIL-HCTZ 20-12.5 MG 1 EACH TAB PO SCH (07:30)
[2020-08-27] MEDS: OXYBUTYNIN 10 MG TAB.ER.24 PO SCH (07:30)
[2020-08-27] MEDS ORDERED: .MORPHINE SULFATE (INJ) 10 MG/ML SYRINGE ONE (08:00)
[2020-08-27] MEDS ORDERED: ceFAZolin 1,000 MG in SODIUM CHLORIDE 0.9% 1,000 ML IRRIGATION ONE (08:00)
[2020-08-27] MEDS ORDERED: SUCCINYLCHOLINE CHLORIDE 100 MG/5 ML SYR IV ONE (08:00)
[2020-08-27] MEDS ORDERED: TRANEXAMIC ACID 1,000 MG/10 ML VIAL ONE (08:00)
[2020-08-27] MEDS ORDERED: fentaNYL (PF) 50 MCG/ML 2 ML AMP ONE (08:00)
[2020-08-27] MEDS ORDERED: ROCURONIUM 10 MG/ML (5 ML VIAL) IV ONE (08:00)
[2020-08-27] MEDS ORDERED: DEXAMETHASONE SOD PHOSPHATE 4 MG/ML 1 ML VIAL ONE (08:00)
[2020-08-27] MEDS ORDERED: NEOSTIGMINE 1 MG/ML 10 ML VIAL ONE (08:00)
[2020-08-27] MEDS ORDERED: GLYCOPYRROLATE 0.2 MG/ML 2 ML VIAL ONE (08:00)
[2020-08-27] MEDS ORDERED: SODIUM CHLORIDE 0.9% 100 ML BAG ONE (08:00)
[2020-08-27] MEDS ORDERED: LIDOCAINE 1% INJ 10MG/ML (20 ML MDV) ONE (08:00)
[2020-08-27] MEDS ORDERED: PROPOFOL 10 MG/ML 20 ML VIAL IV ONE (08:00)
[2020-08-27] MEDS ORDERED: MIDAZOLAM 2 MG/2 ML VIAL ONE (08:00)
[2020-08-27] MEDS ORDERED: IV FLUID CONTINUATION 1,000 ML IV ONE (08:00)
[2020-08-27] MEDS ORDERED: TRANEXAMIC ACID 1,000 MG in SODIUM CHLORIDE 0.9% 100 ML IVPB PRN (08:30)
[2020-08-27 09:16] LABS: Basophils # (A) 0.05 X 10*3/uL (0.00-0.10); Basophils % (A) 0.9 %; Eosinophils # (A) 0.54 X 10*3/uL (0.04-0.35); Eosinophils % (A) 9.7 %; HCT 28.6 % (37.2-46.3); HGB 9.6 g/dL (12.0-15.0); Lymphocytes % (A) 19.7 %; MCH 34.2 pg (27.0-32.0); MCHC 33.6 g/dL (32.0-37.0); MCV 101.8 fL (80.0-97.0); Mean Platelet Volume 12.2 fL (9.5-12.2); Monocytes % (A) 8.9 %; Neutrophils # (A) 3.38 X 10*3/uL (1.80-7.70); Neutrophils % (A) 60.4 %; Platelet Count 176 X 10*3/uL (140-440); RBC 2.81 X 10*6/uL (4.10-5.20); WBC 5.59 X 10*3/uL (4.50-10.00)
--- NOTE | 2020-08-27 09:30 | P.OP ---
Date of Procedure: 08/27/20 Procedure(s) Performed: PREOPERATIVE DIAGNOSIS: Right hip femoral neck fracture POSTOPERATIVE DIAGNOSIS: Right hip femoral neck fracture OPERATION: Right hip cemented unipolar hemiarthroplasty. ANESTHESIA: General ESTIMATED BLOOD LOSS: 150 ml. PERFORMANCE ENGINEER: Madison Núñez PA-C (assistance with: patient positioning, retraction, exposure, hemostasis, leg positioning, implantation, irrigation, closure, dressing) COMPLICATIONS: None apparent. COMPONENTS IMPLANTED: Kin LDFx cemented femoral stem; unipolar femoral head; neck extension augments as needed. INDICATIONS: Mrs. Mcclellan is a 80-year-old female with a history of falling and sustaining a femoral neck fracture. I have recommended surgical treatment with a cemented unipolar hemiarthroplasty. I have discussed this procedure in detail and explained the potential risks and complications as being inclusive of, but not limited to: Bleeding, infection, scarring, discomfort, blood vessel and/or nerve damage, limb length inequality, gait disturbance, blood clot, pulmonary embolism, , and other risks. The consent form has been signed. PROCEDURE: After appropriate consent was obtained, the patient was taken to the operating room and placed in supine position. General anesthetic was administered and after confirmation of adequate anesthesia, the patient was placed into the lateral decubitus position with the affected side up. Care was taken to make sure that all pressure points were adequately padded and a Douglas hip positioner was utilized for positioning. The hip was prepped and draped in the usual aseptic fashion using a combination of Chloraprep and alcohol. [place] drape was used for the case and the patient received intravenous antibiotics prior to the incision. 1 g intravenous tranexamic acid was administered around the time of the prepping and draping, and another 1 g was administered at the time of closure. The incision was created directly over the greater trochanter and carried slightly posteriorly for a posterior approach to the hip. The incision was then deepened down to subcutaneous tissue and fascia giulia. Fascia giulia was split in line with the incision and split proximally along the fibers of the gluteus monico. The underlying fibers of the muscle were teased apart using finger dissection and bleeding vessels were picked up and coagulated. Retractor was then placed posteriorly consisting of a blunt Corinne. The short external rotators and capsule were exposed and good visualization of the attachment of the external rotators to the femur was established. The short external rotators and capsule were released using electrocautery from their femoral attachments. A hockey stick shaped incision was created in the capsule. Joint fluid and hemarthrosis was evacuated and the patient's hip was internally rotated to expose the fracture site. The femoral neck cut was created approximately 1 cm superior to the lesser trochanter using a reciprocating saw. The femoral head and neck fragment was removed and visualization and palpation of the acetabular vault showed intact hyaline cartilage with no bone exposure or significant degeneration. Attention was then directed back to the proximal femur. Retractors were placed around the proximal femur and box osteotome was used followed by canal finder and trochanteric reamer. Cylindrical reaming was performed. Progressive broaching was then performed starting with a #10 broach and progressing final size, in a position of 10-15 degrees anteversion. [place] anteversion was within 5 degrees of stem position. The final size broach had excellent fit and fill of the patient's metaphysis and diaphysis. Calcar planing was performed. Trial reduction was then performed starting with appropriately sized femoral head and various neck extensions to evaluate stability, limb length equality, and soft tissue tension. Once these parameters were satisfactory, the corresponding final components were then called for. Trial components were removed. The femoral canal was sized for the centralizer and cement plug. Once the cement plug had been inserted distal to the planned length of the femoral component, the canal was pulse lavaged and brushed to remove any unstable bone. It was then dried with a lap sponge. Two bags of antibiotic-containing cement was mixed under vacuum conditions to decrease porosity and inserted into a cement gun. Distal centralizer was placed onto the femoral component with a bit of cement. The cement was allowed to reach a slightly doughy consistency and then the canal was filled retrograde with the cement gun. Thumb pressurization was performed three times. The femoral component was then inserted with the previously determined degree of anteversion. Excess cement was removed before it hardened completely. The femoral head was then impacted onto the [place] taper. Blood and debris were removed from the acetabular socket and the hip was then reduced and checked for stability, limb length and soft tissue tension. These parameters were found to be satisfactory; the wound was then thoroughly irrigated with normal saline and Irricept. Final hemostasis was obtained using electrocautery and additionally the application of Surgicel powder topically to the interior of the wound. Closure of the capsule was performed meticulously using #3 Vicryl suture. Four [id number] sutures were placed in the posterior capsule along with repair of the external rotators. The fascia giulia was then repaired using combination of #3 Vicryl suture in interrupted fashion and Quill in running fashion. 2-0 Vicryl suture was used for the subcutaneous tissues and 3-0 Quill for the skin. Dermabond tape was then applied. The patient tolerated the procedure well. There were no complications and the wound bed was dry and there was no need for drain placement. Sterile dressing was then applied and the patient was carefully removed from the operating room table, placed on the stretcher and was taken to the recovery room in stable condition. Sponge and needle counts were correct.
[2020-08-27] MEDS ORDERED: NALOXONE 0.4 MG/ML 1 ML VIAL IV PRN (09:48)
[2020-08-27] MEDS ORDERED: HYDROmorphone 0.5 MG/0.5 ML SYRINGE IVP PRN ×2 (09:48)
[2020-08-27] MEDS ORDERED: MAGNESIUM HYDROXIDE 2,400 MG/10 ML CUP PO PRN (09:48)
[2020-08-27] MEDS ORDERED: HYDROmorphone 0.2 MG/1 ML SYRINGE IVP PRN (09:48)
[2020-08-27] MEDS ORDERED: HYDROcodone/APAP 5-325MG 1 EACH TAB PO PRN ×3 (09:48→11:31)
[2020-08-27 09:59] LABS: Glucose,Whole Blood 128 mg/dL (75-99)
[2020-08-27 10:20] LABS: African American GFR (CKD) 106.7 (60.0-200.0); Anion Gap 6.9 mmol/L (4.00-12.00); Calcium 8.2 mg/dL (8.7-10.3); Carbon Dioxide 25.1 mmol/L (21.6-31.8); Non-African American GFR(CKD) 92.1 (60.0-200.0); Potassium 4.3 mmol/L (3.5-5.5)
[2020-08-27] MEDS ORDERED: HYDROmorphone 0.5 MG/0.5 ML SYRINGE IVP ONE ×2 (10:20→10:30)
[2020-08-27] MEDS: LACTATED RINGERS 1,000 ML IV SCH ×3 (10:23→22:50)
--- NOTE | 2020-08-27 10:36 | XR ---
Limited right hip HISTORY: Status post right hip arthroplasty Single frontal view of the right hip Patient is status post right hip arthroplasty. There is lucency in the soft tissues. Anatomic alignme nt is present. There are vascular calcifications noted incidentally. Bone mineralization is reduced. IMPRESSION: Orthopedic follow-up
[2020-08-27] MEDS ORDERED: SODIUM CHLORIDE 0.9% 1,000 ML IV ONE (10:46)
[2020-08-27] MEDS ORDERED: DOCUSATE 100 MG CAP PO PRN (11:32)
[2020-08-27 11:35] LABS: Glucose,Whole Blood 136 mg/dL (75-99)
[2020-08-27 16:53] LABS: Glucose,Whole Blood 183 mg/dL (75-99)
[2020-08-27] MEDS: ACETAMINOPHEN TAB 325 MG TAB PO PRN ×2 (17:08→23:05)
[2020-08-27] MEDS: amLODIPine 10 MG TAB PO SCH (18:05)
[2020-08-27] MEDS: SODIUM CHLORIDE 0.9% 1,000 ML IV SCH (18:10)
--- NOTE | 2020-08-27 18:44 | PN ---
PROGRESS NOTE DATE OF SERVICE: 08/27/2020 INTERVAL HISTORY: This is a 80-year-old woman who was admitted after a fall and right hip fracture and underwent right hip hemiarthroplasty by Dr. Priest. The patient tolerated the procedure well. There is no history of chest pain or palpitation at this time. PHYSICAL EXAMINATION: GENERAL: Alert and oriented x3. VITAL SIGNS: Pulse 64, blood pressure 156/62, respirations 16, temperature 97.2, pulse ox 95% on room air. HEENT: Conjunctivae normal. Oral mucosa moist. NECK: No jugular venous distention. No carotid bruits. . RESPIRATORY: Breath sounds diminished at the bases. No rhonchi, no crackles. HEART: S1 and S2, muffled. ABDOMEN: Soft, no tenderness. No masses palpable. NERVOUS: No focal deficits. LABS: WBC 5.5, hemoglobin 9.2, sodium 134, Accu-Cheks noted. ASSESSMENT: 1. Right hip fracture, status post right hip hemiarthroplasty. 2. Gait dysfunction. 3. Hypertension. 4. Diabetes mellitus type 2. 5. Hyperlipidemia. 6. History of memory impairment. 7. History of rheumatoid arthritis. 8. History of tremors of the right hand. 9. History of back surgery. 10.History of ankle fracture. 11.History of cholecystectomy. 12.Gait dysfunction. 13.NO CODE, NO CPR, NO VENT. RECOMMENDATIONS AND DISCUSSION: I recommend to continue current management and continue symptomatic treatment. I would add Norvasc to the current regimen. Otherwise, monitor blood sugars closely. Repeat labs will be ordered. PT OT will be consulted. Would recommend rehab because of the multiple complex medical issues as listed above. We will continue to monitor. Closely follow with Orthopedic Surgery. Further recommendations to follow. We will increase the dose of Norvasc to 10 mg. MMODL / IJN: [id number] /
[2020-08-27 20:16] LABS: Glucose,Whole Blood 203 mg/dL (75-99)
[2020-08-27] MEDS: SENNOSIDES-DOCUSATE SODIUM 1 EACH TAB PO SCH (20:40)
[2020-08-28 07:12] LABS: Glucose,Whole Blood 150 mg/dL (75-99)
[2020-08-28] MEDS: INSULIN ASPART (NovoLOG) 100 UNIT/ML VIAL SQ SCH ×4 (08:07→21:19)
[2020-08-28] MEDS: PRIMIDONE 50 MG TAB PO SCH ×4 (08:08→21:19)
[2020-08-28] MEDS: OXYBUTYNIN 10 MG TAB.ER.24 PO SCH (08:08)
[2020-08-28] MEDS: ATORVASTATIN 20 MG TAB PO SCH (08:08)
[2020-08-28] MEDS: FOLIC ACID 1 MG TAB PO SCH (08:08)
[2020-08-28] MEDS: amLODIPine 10 MG TAB PO SCH (08:08)
[2020-08-28] MEDS: LISINOPRIL-HCTZ 20-12.5 MG 1 EACH TAB PO SCH (08:08)
[2020-08-28] MEDS: APIXABAN 2.5 MG TABLET PO SCH ×2 (08:08→21:19)
[2020-08-28] MEDS: CHOLECALCIFEROL 25 MCG (1000 IU) TABLET PO SCH (08:08)
[2020-08-28 09:23] LABS: Basophils # (A) 0.03 X 10*3/uL (0.00-0.10); Basophils % (A) 0.4 %; Eosinophils # (A) 0.39 X 10*3/uL (0.04-0.35); Eosinophils % (A) 5.8 %; HCT 25.7 % (37.2-46.3); HGB 8.9 g/dL (12.0-15.0); Lymphocytes # (A) 0.73 X 10*3/uL (0.90-5.00); Lymphocytes % (A) 10.9 %; MCH 35.3 pg (27.0-32.0); MCHC 34.6 g/dL (32.0-37.0); Mean Platelet Volume 12.2 fL (9.5-12.2); Monocytes # (A) 0.76 X 10*3/uL (0.20-1.00); Monocytes % (A) 11.3 %; Neutrophils # (A) 4.77 X 10*3/uL (1.80-7.70); Neutrophils % (A) 71.3 %; Platelet Count 162 X 10*3/uL (140-440); RBC 2.52 X 10*6/uL (4.10-5.20); RDW 14.2 % (11.5-14.5)
[2020-08-28 10:22] LABS: African American GFR (CKD) 106.7 (60.0-200.0); Anion Gap 6.1 mmol/L (4.00-12.00); Calcium 7.5 mg/dL (8.7-10.3); Carbon Dioxide 25.9 mmol/L (21.6-31.8); Non-African American GFR(CKD) 92.1 (60.0-200.0); Potassium 3.9 mmol/L (3.5-5.5)
--- NOTE | 2020-08-28 10:43 | P.PN ---
Subjective Progress Note Date: 08/28/20 Principal diagnosis: Femoral neck fracture right hip. Status post hemiarthroplasty right hip. This is a 80-year-old female who is postop day #1 status post hemiarthroplasty of the right hip. She is doing well from an orthopedic standpoint. She has no new complaints or concerns today. Vital signs are stable. Objective - Vital Signs Vital signs: Vital Signs Temp 98.3 F 08/28/20 07:34 Pulse 67 08/28/20 07:34 Resp 18 08/28/20 07:34 BP 131/56 08/28/20 07:34 Pulse Ox 95 08/28/20 07:34 Intake & Output 08/27/20 08/28/20 08/28/20 18:59 06:59 18:59 Intake Total 2541 Output Total 1450 1000 Balance 1091 -1000 Intake: IV 901 Oral 1640 Output: Urine 1300 1000 Estimated Blood Loss 150 Other: Voiding Method Indwelling Catheter Indwelling Catheter - Exam This is a pleasant 80-year-old female in no acute distress. She is alert and oriented 3. Exam of the right hip reveals that her dressing is clean, dry and intact. She has full foot and ankle motion without difficulty or pain. Pedal pulse is +2/4. Neurovascular status to the lower extremity is intact. - Labs CBC & Chem 7: 08/28/20 05:52 08/28/20 05:52 Labs: Abnormal Lab Results - Last 24 Hours (Table) 08/27/20 08/27/20 08/27/20 Range/Units 11:33 16:22 20:14 RBC (4.10-5.20) X 10*6/uL Hgb (12.0-15.0) g/dL Hct (37.2-46.3) % MCV (80.0-97.0) fL MCH (27.0-32.0) pg Lymphocytes # (0.90-5.00) X 10*3/uL Eosinophils # (0.04-0.35) X 10*3/uL Sodium (135-145) mmol/L Creatinine (0.6-1.5) mg/dL BUN/Creatinine Ratio (12.00-20.00) Ratio Glucose (70-110) mg/dL POC Glucose (mg/dL) 136 H 183 H 203 H (75-99) mg/dL Calcium (8.7-10.3) mg/dL 08/28/20 08/28/20 08/28/20 Range/Units 05:52 05:52 06:54 RBC 2.52 L (4.10-5.20) X 10*6/uL Hgb 8.9 L (12.0-15.0) g/dL Hct 25.7 L (37.2-46.3) % MCV 102.0 H (80.0-97.0) fL MCH 35.3 H (27.0-32.0) pg Lymphocytes # 0.73 L (0.90-5.00) X 10*3/uL Eosinophils # 0.39 H (0.04-0.35) X 10*3/uL Sodium 134 L (135-145) mmol/L Creatinine 0.5 L (0.6-1.5) mg/dL BUN/Creatinine Ratio 26.00 H (12.00-20.00) Ratio Glucose 144 H (70-110) mg/dL POC Glucose (mg/dL) 150 H (75-99) mg/dL Calcium 7.5 L (8.7-10.3) mg/dL Assessment and Plan (1) Subcapital fracture of right hip Current Visit: Yes Status: Acute Code(s): S72.011A - UNSP INTRACAPSULAR FRACTURE OF RIGHT FEMUR, INIT FOR CLOS FX SNOMED Code(s): 705895088 (2) Diabetes Current Visit: No Status: Acute Code(s): E11.9 - TYPE 2 DIABETES MELLITUS WITHOUT COMPLICATIONS SNOMED Code(s): 95490730 Plan: The clinical findings are discussed the patient. We will begin with physical therapy and occupational therapy. We're planning discharge to inpatient rehab tomorrow if cleared medically.
[2020-08-28 11:29] LABS: Glucose,Whole Blood 189 mg/dL (75-99)
[2020-08-28] MEDS: SODIUM CHLORIDE 0.9% 1,000 ML IV SCH (11:40)
[2020-08-28 17:00] LABS: Glucose,Whole Blood 178 mg/dL (75-99)
--- NOTE | 2020-08-28 17:51 | PN ---
PROGRESS NOTE DATE OF SERVICE: 08/28/2020. This 80-year-old woman who was admitted with right hip fracture, had right hip hemiarthroplasty. The patient being closely monitored. No chest pain. No palpitations. No fever. Blood pressure is mildly elevated. PHYSICAL EXAMINATION: Alert and oriented x3. Pulse 80. Blood pressure 118/59, respirations 16, temp 98.2, pulse ox 94% on room air. HEENT: Conjunctivae normal. NECK: No JVD. CARDIOVASCULAR: S1, S2 muffled. RESPIRATORY: Breath sounds diminished in the bases. Scattered rhonchi and crackles. ABDOMEN: Soft, nontender. LEGS: No edema. No swelling. NERVOUS SYSTEM: No focal deficits. LABORATORY DATA: Accu-Cheks 203, 151, 89. Other labs are noted. Hemoglobin 8.9. ASSESSMENT: 1. Right hip fracture, status post right hip hemiarthroplasty. 2. Gait dysfunction. 3. Hypertension. 4. Diabetes type 2 with the mild hyperglycemia. 5. Hyperlipidemia. 6. History of memory impairment. 7. History of rheumatoid arthritis. 8. History of tremors of the right hand. 9. History of back surgery. 10.History of ankle fracture. 11.History of cholecystectomy. 12.Gait dysfunction. 13.NO CODE, NO CPR, NO VENT. RECOMMENDATIONS AND DISCUSSION: I recommend to continue current medications. Symptomatic treatment. Hemoglobin A1c. Continue the Eliquis for prophylaxis. Patient is taking Plavix for cardiac issues without any history of stents. I would recommend initiate Plavix once the patient has stopped Eliquis for around 30 days, which is meant for DVT prophylaxis. Recommend ECF rehab. We will closely monitor with Orthopedic Surgery. We will also add a small dose of insulin at nighttime for better diabetes control. Further recommendations to follow. MMODL / IJN: [id number] /
[2020-08-28 18:05] LABS: Hemoglobin A1C 6.5 % (4.0-6.0)
[2020-08-28 20:38] LABS: Glucose,Whole Blood 228 mg/dL (75-99)
[2020-08-28] MEDS ORDERED: INSULIN DETEMIR (LEVEMIR) 100 UNIT/ML SYR SQ SCH (21:00)
[2020-08-28] MEDS: SENNOSIDES-DOCUSATE SODIUM 1 EACH TAB PO SCH (21:19)
[2020-08-29] MEDS: ACETAMINOPHEN TAB 325 MG TAB PO PRN (01:11)
[2020-08-29 02:07] LABS: Glucose,Whole Blood 106 mg/dL (75-99)
[2020-08-29 06:53] LABS: Glucose,Whole Blood 64 mg/dL (75-99)
[2020-08-29 07:12] LABS: Glucose,Whole Blood 73 mg/dL (75-99)
[2020-08-29] MEDS: INSULIN ASPART (NovoLOG) 100 UNIT/ML VIAL SQ SCH ×2 (07:13→12:45)
[2020-08-29] MEDS: ATORVASTATIN 20 MG TAB PO SCH (07:42)
[2020-08-29] MEDS: OXYBUTYNIN 10 MG TAB.ER.24 PO SCH (07:42)
[2020-08-29] MEDS: CHOLECALCIFEROL 25 MCG (1000 IU) TABLET PO SCH (07:42)
[2020-08-29] MEDS: FOLIC ACID 1 MG TAB PO SCH (07:42)
[2020-08-29] MEDS: amLODIPine 10 MG TAB PO SCH (07:42)
[2020-08-29] MEDS: LISINOPRIL-HCTZ 20-12.5 MG 1 EACH TAB PO SCH (07:42)
[2020-08-29] MEDS: PRIMIDONE 50 MG TAB PO SCH (07:42)
[2020-08-29] MEDS: APIXABAN 2.5 MG TABLET PO SCH (07:42)
[2020-08-29 07:56] VITALS: BP 150/59; PULSE 69; RESP 16; TEMP 98
--- NOTE | 2020-08-29 09:10 | P.DS ---
Providers Date of admission: 08/25/20 22:26 Expected date of discharge: 08/29/20 Attending physician: Kosta Priest Consults: 08/25/20 22:29 Consult Physician Routine Consulting Provider: Amado De La Garza Consult Reason/Comments: medicine consult Do you want consulting provider notified?: Yes Primary care physician: Seven Moreno - Discharge Diagnosis(es) (1) Hip fracture Current Visit: Yes Status: Acute (2) Subcapital fracture of right hip Current Visit: Yes Status: Acute Hospital Course: This is an 80-year-old female who sustained a fracture of her right hip after a fall at home on 08/25/2020. The patient presented for evaluation in the emergency room. After discussion and consideration patient elects to proceed with right hip hemiarthroplasty. The patient is seen preoperatively by Dr. Priest and medically cleared for surgery by internal medicine. Patient is admitted to [facility] on 08/25/2020 and right hip hemiarthroplasty is performed on 08/27/2020. The procedure is performed without complication or sequelae. The patient is doing well postoperatively. Labs and vital signs are stable on day of discharge. On day of discharge patient's hip incision is healing well. There is minimal erythema. There is no drainage noted at this time. There is minimal soft tissue swelling to the hip and thigh. Patient has full foot and ankle motion without difficulty or pain. Calf is soft and nontender to palpation. Neurovascular status to the right lower extremity is intact. Patient is discharged to rehab in good condition. Please see med rec for accurate list of home medications. Patient Condition at Discharge: Fair Plan - Discharge Summary Discharge Rx Participant: No New Discharge Prescriptions: New HYDROcodone/APAP 5-325MG [[place] 5-325] 1 - 2 tab PO Q6HR PRN #32 tab PRN Reason: Pain Sennosides-Docusate Sodium [Senokot-S] 1 tab PO BID #60 tablet No Action metHOTREXate sodium [Methotrexate] 20 mg PO WE Primidone [Mysoline] 50 mg PO QID Oxybutynin Chloride [Ditropan XL] 10 mg PO DAILY Atorvastatin [Lipitor] 20 mg PO DAILY Lisinopril-Hctz 20-12.5 mg [Zestoretic 20-12.5] 1 tab PO DAILY Clopidogrel [Plavix] 75 mg PO DAILY #30 tab amLODIPine [Norvasc] 5 mg PO DAILY #90 tab Folic Acid 0.4 mg PO DAILY Cholecalciferol [Vitamin D3 (25 Mcg = 1000 Iu)] 25 mcg PO DAILY Aspirin EC [Ecotrin Low Dose] 81 mg PO DAILY Discharge Medication List metHOTREXate sodium [Methotrexate] 20 mg PO WE 09/09/14 [History] Atorvastatin [Lipitor] 20 mg PO DAILY 04/08/17 [History] Oxybutynin Chloride [Ditropan XL] 10 mg PO DAILY 04/08/17 [History] Primidone [Mysoline] 50 mg PO QID 04/08/17 [History] Lisinopril-Hctz 20-12.5 mg [Zestoretic 20-12.5] 1 tab PO DAILY 10/24/17 [History] Clopidogrel [Plavix] 75 mg PO DAILY #30 tab 10/25/17 [Rx] amLODIPine [Norvasc] 5 mg PO DAILY #90 tab 10/25/17 [Rx] Aspirin EC [Ecotrin Low Dose] 81 mg PO DAILY 08/25/20 [History] Cholecalciferol [Vitamin D3 (25 Mcg = 1000 Iu)] 25 mcg PO DAILY 08/25/20 [History] Folic Acid 0.4 mg PO DAILY 08/25/20 [History] HYDROcodone/APAP 5-325MG [[place] 5-325] 1 - 2 tab PO Q6HR PRN #32 tab 08/28/20 [Rx] Sennosides-Docusate Sodium [Senokot-S] 1 tab PO BID #60 tablet 08/28/20 [Rx] Follow up Appointment(s)/Referral(s): Madison Núñez PAC [PHYSICIAN [employer]] - 3 Weeks Seven Moreno MD [Primary Care Provider] - 1-2 days Activity/Diet/Wound Care/Special Instructions: A bear weight as tolerated with walker. Keep Optifoam dressing in place 7-10 days postop. May shower. Internal medicine to manage anticoagulation. Discharge Disposition: TRANSFER TO SNF/ECF
[2020-08-29 11:05] LABS: Glucose,Whole Blood 105 mg/dL (75-99)
--- NOTE | 2020-08-29 17:56 | PN ---
PROGRESS NOTE DATE OF SERVICE: 08/29/2020 This 80-year-old woman who was admitted with right hip fracture, underwent arthroplasty by Dr. Priest. The patient improved significantly. No chest pain. No palpitations. No fever. PHYSICAL EXAMINATION: Alert and oriented times three. Pulse 69, blood pressure 150/89, respirations 16. Temp 98 degrees, pulse ox normal. HEENT: Conjunctivae normal. NECK: No JVD. CARDIOVASCULAR: S1-S2 muffled. RESPIRATION: Breath sounds diminished in the bases. A few scattered rhonchi. ABDOMEN: Soft, nontender. Nervous System: No focal deficits. LABS: WBC 6.6, hemoglobin is 8.9. Sodium 134. ASSESSMENT: 1. Right hip fracture, status post right hip hemiarthroplasty. 2. Gait dysfunction. 3. Hypertension. 4. Diabetes mellitus type 2 with mild hyperglycemia. 5. Hyperlipidemia. 6. History of memory impairment. 7. History of rheumatoid arthritis. 8. History of tremors of the right hand. 9. History of back surgery. 10.History of ankle fracture. 11.History of cholecystectomy. 12.History of gait dysfunction. 13.NO CODE, NO CPR, NO VENT. RECOMMENDATIONS AND DISCUSSION: Recommend to continue current medications, management and symptomatic treatment. Otherwise resume the home medications. Accu-Cheks a.c. and q.h.s. and scale. DVT prophylaxis. Otherwise, recommend Eliquis 2.5 mg twice daily for 30 days followed by Plavix and otherwise Accu-Cheks before meals and at bedtime and scale and repeat labs in the ECF and follow up with Dr. Moreno after discharge from ECF. Please note hemoglobin A1c 6.5 at this time. MMODL / IJN: [id number] /
[2020-08-30] MEDS ORDERED: metHOTREXate sodium 2.5 MG TAB PO SCH (09:00)
== END 2020-08-29 14:34 | DRG 522 ==
LOC: EC 21:08 → 4SSUR 22:26
PROVIDERS: ADMIT Orthopaedic Surgery; ATTEND Orthopaedic Surgery
PROC: 0SRR019 Replacement of Right Hip Joint, Femoral Surface with Metal Synthetic Substitute, Cemented, Open Approach (ICD-10-PCS; principal; 2020-08-27 08:00)
DX: S72.011A Unspecified intracapsular fracture of right femur, initial encounter for closed fracture (principal); E11.65 Type 2 diabetes mellitus with hyperglycemia; M06.9 Rheumatoid arthritis, unspecified; Z20.822 Contact with and (suspected) exposure to COVID-19; I10 Essential (primary) hypertension; R25.1 Tremor, unspecified; E78.5 Hyperlipidemia, unspecified; Z79.82 Long term (current) use of aspirin; Z79.02 Long term (current) use of antithrombotics/antiplatelets; Z79.899 Other long term (current) drug therapy; Z98.42 Cataract extraction status, left eye; Z98.41 Cataract extraction status, right eye; Z96.1 Presence of intraocular lens; Z90.49 Acquired absence of other specified parts of digestive tract; Z87.19 Personal history of other diseases of the digestive system; Z90.89 Acquired absence of other organs; Z87.81 Personal history of (healed) traumatic fracture; Z98.890 Other specified postprocedural states; W01.0XXA Fall on same level from slipping, tripping and stumbling without subsequent striking against object, initial encounter; Y92.000 Kitchen of unspecified non-institutional (private) residence as the place of occurrence of the external cause; Z80.9 Family history of malignant neoplasm, unspecified; Z82.49 Family history of ischemic heart disease and other diseases of the circulatory system
CPT/HCPCS: 71045; 72170; 73501; 80048; 81001; 83036; 85025; 85610; 85730; 87635; 88305; 88311; 93005; 99285